=== PATIENT | female | born 2000 | race Caucasian/White ===

== ENCOUNTER 2020-02-04 11:47 | Inpatient (IN) | payer OTHER, MEDICAID, SELFPAY ==
[2020-02-04 11:56] VITALS: BP 116/59; PULSE 114; RESP 16; TEMP 36.6; O2SAT 99; BMI 19.3
--- NOTE | 2020-02-04 12:11 | ED_ITS ---
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 Reports he was admitted for approximately 4 days and was receiving 3 different IV antibiotics and decided to leave against medical advice to be closer to home. They did not discharge him with any medications. Patient reports he has consistent left- sided chest pain since he was diagnosed. Otherwise denies any new symptoms including fevers, chills, worsening chest pain, shortness of breath, back pain, abdominal pain, nausea/vomiting, dysuria, hematuria any other symptoms complaints or concerns at this time. Reports that he is interested in detox and will be seeking detox after he is finished with his treatment for the endocarditis. Reports he used to use IV cocaine although since he was diagnosed with endocarditis he was not using drugs until he left against medical advice and yesterday and up sniffing cocaine. Related Data Home Medications Medication Instructions Recorded Confirmed No Known Home Meds 02/04/20 02/04/20 Allergies Allergy/AdvReac Type Severity Reaction Status Date / Time No Known Allergies Allergy Unverified 11/05/19 18:15 [No Known Allergies*] Review of Systems Review of Systems: Constitutional : No Fever, No Chills, No Fatigue, No Malaise ENT/Mouth : No Ear Pain, No Nasal Congestion, No sore throat, No Rhinorrhea Eyes: No Eye Pain, No Swelling, No Vision Changes Cardiovascular : + Left sided Chest pain, No SOB, no Dyspnea on Exertion, No Orthopnea, No Edema, No extremity swelling, No Palpitations Respiratory : No Cough, No Sputum, No Wheezing, No Dyspnea Gastrointestinal : No Nausea, No Vomiting, No Diarrhea, No abdominal Pain, No Hematochezia, No Melena Genitourinary : No irregular bleeding, No Dysuria, No Urinary Frequency, No Hematuria, No Urinary Incontinence, No Urgency, No Flank Pain, No Urinary Flow Changes, No Hesitancy Musculoskeletal : No joint pain, No Myalgias, No Joint Swelling Skin : No Skin Lesions, No rash Neuro : No Weakness, No Numbness, No Paresthesias, No Loss of Consciousness, No Dizziness, No Headache Psych : No Anxiety/Panic, No Depression, No SI/HI/AH/VH Heme/Lymph: No Bruising, No Bleeding,No Lymphadenopathy Endocrine : No Polyuria, No Polydipsia, No Temperature Intolerance Yes all other systems are reviewed and are negative [facility] Past Medical History Medical History (Updated 02/04/20 @ 14:12 by RACHELLE Quintanilla) Cocaine abuse Opiate addiction Surgical History (Updated 02/04/20 @ 12:35 by RACHELLE Quintanilla) H/O mastectomy Social History Social History Alcohol intake: current Alcohol intake frequency: a few times a week Smoking Status: Former smoker Use of substances other than those prescribed or required for medical reasons: Yes Substance Use Type: Heroin Substance Use Frequency: Chronic Longstanding Last Used Substance: Unknown Any prior treatment program specific to substance use: No Advance Directives: No Advance Directives Information Provided: No Physical Exam Vital Signs: Vital Signs: Last Vital Signs Temp 98 F 02/04/20 11:56 Pulse 114 H 02/04/20 11:56 Resp 16 02/04/20 11:56 BP 116/59 L 02/04/20 11:56 Pulse Ox 99 02/04/20 11:56 Body Mass Index 19.3 vital signs have been reviewed as normal and appeared to be correct. Blood pressure normal. Heart rate tachycardic. Respiration rate normal. Temperature normal. Oxygen saturation normal. Appearance: Alert. Oriented X3. No acute distress. Head: Normal external exam. Normocephalic. Atraumatic. Eyes: PERRLA. EOMI. Conjunctiva and sclera normal. Eyelids normal. ENT: Pharynx normal. Uvula midline. Moist mucous membranes. No trismus noted. No drooling noted. No muffled voice noted. Neck: Normal inspection. Neck supple. FROM. No adenopathy. Thyroid Normal. No meningeal signs. No neck mass noted. CVS: Normal heart rate and rhythm. Heart sound normal. No murmurs noted. Pulses normal throughout. Respiratory: No respiratory distress. Painless inspiration. Breath sounds maykel l. No wheezes/rales/rhonchi noted. Chest nontender. No accessory muscle usage noted or decreased air movement noted. Back: Full range of motion noted. Skin: Skin warm and dry. Normal skin color. Normal skin turgor. No rashes/lesions/lacerations noted. Extremities: + Right calf tenderness, No left sided calf tenderness. No lower extremity edema. Extremities exhibit normal range of motion. Extremities nontender. Neuro: Oriented X 3. No motor deficit. No sensory deficit. Reflexes normal. 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 - Plan: Obtain records from [facility], Labs, EKG, CXR, Lactic acid, blood cultures, provide IVF's and 5 mg of oxycodone then re-evaluate Reevaluation(s) Reevaluation #1: - Records obtained from [facility] in [facility], which reports that the patient had blood cultures which revealed methicillin sensitive Staph aureus and the patient was placed on oxacillin and clindamycin per Infectious Disease team. Patient HIV negative. Hepatitis panel negative. Echocardiogram revealed vegetation on tricuspid valve. Will consult with the infectious disease team here to start the patient back on oxacillin and nafcillin possibly will re-evaluate. Time: 13:24 Reevaluation #2: [place] [address]. Mild anemia. Mild elevation in AST and ALT. Albumin 3.0. Otherwise all other labs are within normal limits. ETOH level negative. Ultrasound of right lower extremity within normal limits no acute processes noted. - I consulted with Infectious Disease Donna Drew who recommended continuing the oxacillin although I called pharmacy and we do not have that in the formulary therefore we will order an alternative medication at this time and I did a pharmacy non formulary drug request for the patient for oxacillin 2 g IV every 4 hours as they were giving in [facility]. Although the infectious disease Dr. Donna Drew reports that we do have the nafcillins therefore will attempt to order 2 gm q4hrs at this time. Plan is to admit. Patient understands agrees with this plan. Time: 14:07 Medical Decision Making Lab Data Lab results reviewed: Yes I reviewed the patient's lab results. Result diagrams: 02/04/20 12:55 02/04/20 12:55 Labs: Lab Results 02/04/20 02/04/20 02/04/20 Range/Units 12:55 12:55 12:55 WBC 15.0 H (4.8-10.8) X10*3/uL RBC 3.42 L (4.20-5.50) X10*6/uL Hgb 10.5 L (12.0-16.0) g/dl Hct 32.0 L (37-47) % MCV 93.6 (80-98) fL MCH 30.7 (27.0-33.0) pg MCHC 32.8 (31.0-35.0) g/dl RDW 17.1 H (11.0-16.0) % Plt Count 281 (160-400) X10*3/uL MPV 9.0 L (9.4-12.3) fL Immature Gran % (Auto) 3.7 H (0.0-0.4) % Neut % (Auto) 75.4 H (45-73) % Lymph % (Auto) 12.0 L (20-40) % Upton % (Auto) 7.8 (2-11) % Eos % (Auto) 0.9 (0-4) % Baso % (Auto) 0.2 (0-2) % Lymph # (Auto) 1.8 (1.2-4.9) X10*3/uL Upton # (Auto) 1.2 (0.1-1.2) X10*3/uL Eos # (Auto) 0.1 (0.0-0.4) X10*3/uL Baso # (Auto) 0.0 (0.0-0.2) X10*3/uL Abs Immat Gran (auto) 0.56 H (0.00-0.03) X10*3/uL Absolute Neuts (auto) 11.3 H (2.0-8.3) X10*3/uL Absolute Nucleated RBC 0.000 (0.0-0.012) X10*3/uL Nucleated RBC % (auto) 0.0 (0.0-0.2) /100WBC PT 15.3 H (10.8-13.0) SEC INR 1.3 H (0.9-1.1) APTT 27.0 (24.1-38.0) SEC Sodium 135 (135-145) mmol/L Potassium 4.1 (3.3-5.1) mmol/l Chloride 100 (96-108) mmol/L Carbon Dioxide 28 (22-29) mmol/L Anion Gap 11 L (12-20) BUN 6 L (9-16) mg/dL Creatinine 0.64 (0.5-1.4) mg/dL Estim Creat Clear Calc 120.4 Estimated GFR > 60 Random Glucose 82 (60-115) mg/dL Lactic Acid (0.5-2.0) mmol/L Calcium 7.9 L (8.4-10.2) mg/dL Magnesium 2.3 (1.6-2.6) mg/dL Total Bilirubin 0.7 (0.0-1.0) mg/dL Direct Bilirubin 0.4 (0.0-0.5) mg/dL AST 45 H (5-31) U/L ALT 51 H (0-31) U/L Alkaline Phosphatase 116 (39-117) U/L Troponin I High Sens (<3.5-17.0) ng/L B-Natriuretic Peptide (<100) pg/mL Total Protein 6.6 (6.5-8.0) g/dL Albumin 3.0 L (3.5-5.0) g/dL Urine Test (NEGATIVE) Urine Opiates Screen (Not Detect) Ur Barbiturates Screen (Not Detect) Ur Phencyclidine Scrn (Not Detect) Ur Amphetamines Screen (Not Detect) U Benzodiazepines Scrn (Not Detect) Urine Cocaine Screen (Not Detect) U Marijuana (THC) Screen (Not Detect) Ethyl Alcohol mg/dL 02/04/20 02/04/20 02/04/20 Range/Units 12:55 12:55 12:55 WBC (4.8-10.8) X10*3/uL RBC (4.20-5.50) X10*6/uL Hgb (12.0-16.0) g/dl Hct (37-47) % MCV (80-98) fL MCH (27.0-33.0) pg MCHC (31.0-35.0) g/dl RDW (11.0-16.0) % Plt Count (160-400) X10*3/uL MPV (9.4-12.3) fL Immature Gran % (Auto) (0.0-0.4) % Neut % (Auto) (45-73) % Lymph % (Auto) (20-40) % Upton % (Auto) (2-11) % Eos % (Auto) (0-4) % Baso % (Auto) (0-2) % Lymph # (Auto) (1.2-4.9) X10*3/uL Upton # (Auto) (0.1-1.2) X10*3/uL Eos # (Auto) (0.0-0.4) X10*3/uL Baso # (Auto) (0.0-0.2) X10*3/uL Abs Immat Gran (auto) (0.00-0.03) X10*3/uL Absolute Neuts (auto) (2.0-8.3) X10*3/uL Absolute Nucleated RBC (0.0-0.012) X10*3/uL Nucleated RBC % (auto) (0.0-0.2) /100WBC PT (10.8-13.0) SEC INR (0.9-1.1) APTT (24.1-38.0) SEC Sodium (135-145) mmol/L Potassium (3.3-5.1) mmol/l Chloride (96-108) mmol/L Carbon Dioxide (22-29) mmol/L Anion Gap (12-20) BUN (9-16) mg/dL Creatinine (0.5-1.4) mg/dL Estim Creat Clear Calc Estimated GFR Random Glucose (60-115) mg/dL Lactic Acid 0.8 (0.5-2.0) mmol/L Calcium (8.4-10.2) mg/dL Magnesium (1.6-2.6) mg/dL Total Bilirubin (0.0-1.0) mg/dL Direct Bilirubin (0.0-0.5) mg/dL AST (5-31) U/L ALT (0-31) U/L Alkaline Phosphatase (39-117) U/L Troponin I High Sens < 3.5 (<3.5-17.0) ng/L B-Natriuretic Peptide 59 (<100) pg/mL Total Protein (6.5-8.0) g/dL Albumin (3.5-5.0) g/dL Urine Test (NEGATIVE) Urine Opiates Screen (Not Detect) Ur Barbiturates Screen (Not Detect) Ur Phencyclidine Scrn (Not Detect) Ur Amphetamines Screen (Not Detect) U Benzodiazepines Scrn (Not Detect) Urine Cocaine Screen (Not Detect) U Marijuana (THC) Screen (Not Detect) Ethyl Alcohol mg/dL 02/04/20 02/04/20 02/04/20 Range/Units 12:55 13:18 14:13 WBC (4.8-10.8) X10*3/uL RBC (4.20-5.50) X10*6/uL Hgb (12.0-16.0) g/dl Hct (37-47) % MCV (80-98) fL MCH (27.0-33.0) pg MCHC (31.0-35.0) g/dl RDW (11.0-16.0) % Plt Count (160-400) X10*3/uL MPV (9.4-12.3) fL Immature Gran % (Auto) (0.0-0.4) % Neut % (Auto) (45-73) % Lymph % (Auto) (20-40) % Upton % (Auto) (2-11) % Eos % (Auto) (0-4) % Baso % (Auto) (0-2) % Lymph # (Auto) (1.2-4.9) X10*3/uL Upton # (Auto) (0.1-1.2) X10*3/uL Eos # (Auto) (0.0-0.4) X10*3/uL Baso # (Auto) (0.0-0.2) X10*3/uL Abs Immat Gran (auto) (0.00-0.03) X10*3/uL Absolute Neuts (auto) (2.0-8.3) X10*3/uL Absolute Nucleated RBC (0.0-0.012) X10*3/uL Nucleated RBC % (auto) (0.0-0.2) /100WBC PT (10.8-13.0) SEC INR (0.9-1.1) APTT (24.1-38.0) SEC Sodium (135-145) mmol/L Potassium (3.3-5.1) mmol/l Chloride (96-108) mmol/L Carbon Dioxide (22-29) mmol/L Anion Gap (12-20) BUN (9-16) mg/dL Creatinine (0.5-1.4) mg/dL Estim Creat Clear Calc Estimated GFR Random Glucose (60-115) mg/dL Lactic Acid (0.5-2.0) mmol/L Calcium (8.4-10.2) mg/dL Magnesium (1.6-2.6) mg/dL Total Bilirubin (0.0-1.0) mg/dL Direct Bilirubin (0.0-0.5) mg/dL AST (5-31) U/L ALT (0-31) U/L Alkaline Phosphatase (39-117) U/L Troponin I High Sens (<3.5-17.0) ng/L B-Natriuretic Peptide (<100) pg/mL Total Protein (6.5-8.0) g/dL Albumin (3.5-5.0) g/dL Urine Test NEGATIVE (NEGATIVE) Urine Opiates Screen POSITIVE H (Not Detect) Ur Barbiturates Screen Not Detected (Not Detect) Ur Phencyclidine Scrn Not Detected (Not Detect) Ur Amphetamines Screen Not Detected (Not Detect) U Benzodiazepines Scrn Not Detected (Not Detect) Urine Cocaine Screen Not Detected (Not Detect) U Marijuana (THC) Screen Not Detected (Not Detect) Ethyl Alcohol < 10 mg/dL ECG Data Attestation: I personally reviewed and interpreted this ECG as follows: Interpretation: Normal sinus rhythm with a ventricular rate of 90 with normal TN interval. Normal QRS duration. Normal QT/QTC interval. No acute ischemic changes noted. Critical Care Time Critical Care Time Critical Care Time: Yes Total Critical Care Time: 60 Attestation: I personally attest to this time spent taking care of the patient Discharge Plan Discharge Clinical Impression: Vegetative endocarditis, Sepsis Patient Disposition: Admitted As Inpatient
--- NOTE | 2020-02-04 12:26 | ECG_ITS ---
Test Reason : WEAKNESS Blood Pressure : / mmHG Vent. Rate : 090 BPM Atrial Rate : 090 BPM P-R Int : 120 ms QRS Dur : 094 ms QT Int : 378 ms P-R-T Axes : 054 076 051 degrees QTc Int : 462 ms Normal sinus rhythm Normal ECG When compared with ECG of 03-NOV-2019 01:07, No significant change was found Referred By: Ning Treviño Electronically Signed By:All Salazar
--- NOTE | 2020-02-04 12:36 | US_ITS ---
EXAMINATION: US VENOUS ULTRASOUND WITH DOPPLER LOWER EXTREMITY, RIGHT CLINICAL INFORMATION: History of IV drug usage and endocarditis. COMPARISON: None TECHNIQUE: Ultrasound of the deep veins is performed from the hip to the calf with compression sonography and color and pulse Doppler assessment. Spectral analysis with color-flow imaging is performed. FINDINGS: There is normal venous compression and respiratory variation and augmented flow. The visualized common femoral vein, superficial femoral vein, profunda femoral vein, popliteal vein, and the trifurcation region shows no evidence of deep venous thrombosis. There is small popliteal fossa cyst. It measures 1.8 x 0.7 x 1.9 cm US/US venous duplex LE RT IMPRESSION: No evidence of DVT demonstrated in the right lower extremity. Small popliteal fossa cyst
[2020-02-04 13:05] LABS: MANUAL DIFF FLAG NO
[2020-02-04 13:06] LABS: Basophils Percent Auto 0.2 % (0-2); Eosinophils Absolute Auto 0.1 X10*3/uL (0.0-0.4); Eosinophils Percent Auto 0.9 % (0-4); Hemoglobin 10.5 g/dl (12.0-16.0); Imm Gran Abs Auto 0.56 X10*3/uL (0.00-0.03); Imm Gran Pct Auto 3.7 % (0.0-0.4); Lymphocytes Absolute Auto 1.8 X10*3/uL (1.2-4.9); Mean Corpuscular HGB Conc 32.8 g/dl (31.0-35.0); Mean Corpuscular Hemoglobin 30.7 pg (27.0-33.0); Mean Corpuscular Volume 93.6 fL (80-98); Monocytes Absolute Auto 1.2 X10*3/uL (0.1-1.2); Monocytes Percent Auto 7.8 % (2-11); Neutrophils Absolute Auto 11.3 X10*3/uL (2.0-8.3); Neutrophils Percent Auto 75.4 % (45-73); Platelet Count 281 X10*3/uL (160-400); Red Blood Count 3.42 X10*6/uL (4.20-5.50); Red Cell Distribution Width 17.1 % (11.0-16.0)
[2020-02-04 13:11] LABS: INTERNATIONAL NORM RATIO 1.3 (0.9-1.1); Prothrombin Time 15.3 SEC (10.8-13.0)
[2020-02-04 13:22] LABS: Lactic Acid 0.8 mmol/L (0.5-2.0)
[2020-02-04 13:37] LABS: Ethanol < 10 mg/dL
[2020-02-04 13:43] LABS: B Type Natriuretic Peptide 59 pg/mL (<100); Troponin-I High Sensitivity < 3.5 ng/L (<3.5-17.0)
[2020-02-04 13:45] LABS: Alanine Aminotransferase 51 U/L (0-31); Alkaline Phosphatase 116 U/L (39-117); Anion Gap 11 (12-20); Aspartate Amino Transferase 45 U/L (5-31); Bilirubin Direct 0.4 mg/dL (0.0-0.5); Bilirubin Total 0.7 mg/dL (0.0-1.0); Blood Urea Nitrogen 6 mg/dL (9-16); Calcium 7.9 mg/dL (8.4-10.2); Carbon Dioxide 28 mmol/L (22-29); Chloride 100 mmol/L (96-108); Creatinine Clr Calc Pharmacy 120.4; Estimated Glomerular Filt Rate > 60; Glucose Random 82 mg/dL (60-115); Magnesium 2.3 mg/dL (1.6-2.6); Potassium 4.1 mmol/l (3.3-5.1); Sodium 135 mmol/L (135-145); Total Protein 6.6 g/dL (6.5-8.0)
--- NOTE | 2020-02-04 13:58 | XR_ITS ---
EXAMINATION: XR CHEST CLINICAL INFORMATION: Left-sided chest pain and history of endocarditis COMPARISON: None TECHNIQUE: 2 views of the chest were obtained. FINDINGS: The cardiac and mediastinal contours are normal. The lungs appear well inflated. There is a airspace disease at the right lung base suggestive of pneumonia. There are several bilateral nodular opacities questionable for pulmonary nodules, for example in the left upper lobe in between the anterior third and fourth ribs measuring 1 cm and in the right lung in between the anterior fifth and sixth ribs measuring 1.4 cm. There is a small right pleural effusion. Bony structures are unremarkable. XR/XR chest 2V IMPRESSION: Airspace disease at the right lung base suggestive of pneumonia. There are also bilateral smaller nodular opacities. Given history of endocarditis, septic emboli should be considered. Findings could be better evaluated with chest CT if clinically indicated. Small right pleural effusion.
[2020-02-04] MEDS: 0.9 % Sodium Chloride 1,632.93 ML 1632.93 ML IVCONT (14:08)
[2020-02-04 14:13] LABS: Amphetamine Screen Urine Not Detected (Not Detect); Barbiturates, Urine Not Detected (Not Detect); Benzodiazepines Screen Urine Not Detected (Not Detect); Cannabinoid Screen Urine Not Detected (Not Detect); Cocaine Screen Urine Not Detected (Not Detect); Opiate Screen Urine POSITIVE (Not Detect); Phencyclidine Screen Urine Not Detected (Not Detect)
[2020-02-04 14:44] LABS: UPreg QC Valid YES; Urine Pregnancy NEGATIVE (NEGATIVE)
[2020-02-04] MEDS: oxyCODONE HCl Immed Release 5 MG TABLET PO (15:06)
[2020-02-04] MEDS: Nafcillin Sodium 2 GM in 0.9 % Sodium Chloride 100 ML IV ×3 (15:07→23:54)
[2020-02-04 15:44] VITALS: BP 94/42; PULSE 96; RESP 18; TEMP 36.7; O2SAT 97
--- NOTE | 2020-02-04 15:46 | CT_ITS ---
EXAMINATION: CT CHEST WITHOUT CONTRAST CLINICAL INFORMATION: Abnormal chest x-ray, rule out septic emboli. COMPARISON: Chest radiographs from today. TECHNIQUE: Multidetector volumetric CT imaging of the chest was done. Axial MIP volume rendering provided. Sagittal and coronal reformatted images were obtained. This CT examination was performed using dose optimization techniques as appropriate, variously including the following: *Automated exposure control *Adjustment of mA and/or kV according to patient size (this includes techniques or standardized protocols for targeted exams where dose is matched to indication/reason for exam; i.e. extremities or head) *Use of iterative reconstruction technique DLP: 184.13 mGy-cm FINDINGS: LUNGS/PLEURA/AIRWAYS: Multiple nodular infiltrates are seen bilaterally, some with necrotic centers. A nodule posteriorly in the right apex measures 1.0 cm (image 10, series 3. A subpleural nodule anteriorly in the left upper lobe measures 1.2 cm (image 15, series 3). A larger infiltrate/nodules are seen measuring 2.9 cm posteriorly in the superior segment of the right lower lobe (image 24, series 3) and 2.9 cm in the superior segment of the left lower lobe. There are small bilateral pleural effusions. Bibasilar linear atelectasis/scarring is seen. The airways are patent. MEDIASTINUM: The visualized thyroid gland is unremarkable. Normal caliber of the thoracic aorta. No coronary artery calcifications. No significant pericardial effusion. No mediastinal or hilar lymphadenopathy. Debris is seen within the visualized esophagus from the level the inferior neck distally. AXILLA: No lymphadenopathy. UPPER ABDOMEN: Unremarkable. OSSEOUS STRUCTURES: Mild mid thoracic dextro scoliosis without significant degenerative changes or suspicious abnormality. CT/CT chest wo con IMPRESSION: 1. Multiple nodular infiltrates bilaterally are nonspecific, but would be consistent with septic emboli. Malignancy would be less likely but cannot be excluded. Small bilateral pleural effusions. Short-term follow-up chest with chest radiographs is recommended. If these findings do not resolve, a repeat chest CT scan is recommended as clinically indicated. 2. Debris within the esophagus without surrounding abnormality. This could represent reflux/sequelae of emesis.
[2020-02-04 16:16] LABS: COVID-19 Test Negative (Negative)
--- NOTE | 2020-02-04 16:17 | P.HPHOSP_ITS ---
History of Present Illness Date of Service: 02/04/20 <RACHELLE Lakhani - Last Filed: 02/04/20 19:00> Chief Complaint: endocarditis <RACHELLE Lakhani - Last Filed: 02/04/20 19:00> This is a 19 year old transgender female with history of IV drug abuse who presents due to endocarditis. He left POOL from [facility] 02/03/2020 where he was being treated for tricuspid valve endocarditis and MSSA bacteremia. He had been started on oxacillin but blood cultures were still positive therefore PICC line had not yet been placed. He lives locally in wanted to be closer to home so left AMA and presented here at [place]. He was also being treated for acute hypoxemic respiratory failure. COVID, influenza and RSV were all negative. Chest CTA showed bilateral pleural effusions subpleural nodules and adenopathy. In addition he was diagnosed with urinary tract infection. Initial vital signs revealed tachycardia with heart rate of 114. Lab work was significant for leukocytosis of 15,000. Tox screen positive for opiates. He was started on oxacillin and decision was reached to admit him for further management. <RACHELLE Lakhani - Last Filed: 02/04/20 19:00> Review of Systems Review of Systems: Yes all other systems are reviewed and are negative <RACHELLE Lakhani - Last Filed: 02/04/20 19:00> Constitutional: Constitutional: Denies chills <RACHELLE Lakhani - Last Filed: 02/04/20 19:00> Cardiovascular: Cardiovascular: Reports chest pain <RACHELLE Lakhani - Last Filed: 02/04/20 19:00> Respiratory: Respiratory: Denies cough <RACHELLE Lakhani - Last Filed: 02/04/20 19:00> Gastrointestinal: Gastrointestinal: Denies abdominal pain <RACHELLE Lakhani - Last Filed: 02/04/20 19:00> ON LICENSE OF [facility] Medical History: Medical History Cocaine abuse IV drug abuse Opiate addiction <RACHELLE Lakhani Last Filed: 02/04/20 19:00> Functional capacity: independent ambulation <RACHELLE Lakhani - Last Filed: 02/04/20 19:00> Family History: Family History Other Adopted <RACHELLE Lakhani - Last Filed: 02/04/20 19:00> Surgical History: Surgical History H/O mastectomy <RACHELLE Lakhani - Last Filed: 02/04/20 19:00> Social History: Social History Housing: Homeless Housing Other:: mother told pt they are welcome at home Do you presently have visiting nurse or other home services: No Alcohol intake: current Alcohol intake frequency: a few times a month Smoking Status: Current some day smoker Tobacco Type: Cigarette Smoked in Last 30 Days: Yes Patient Interested in Nicotine Replacement: Yes Use of substances other than those prescribed or required for medical reasons: Yes Substance Use Type: Crack/Cocaine and Opiates Substance Use Frequency: Daily Last Used Substance: Days (ago) Currently Displaying Signs/Symptoms of Drug Intoxication Withdrawal: No Other Past Substance Use Problem:: abdomina; discomfort Any prior treatment program specific to substance use: Yes Have you been hit, kicked, punched, or otherwise hurt by someone within the past year? If so, by whom?: No Do you feel safe in your current relationship?: No Is there a partner from a previous relationship who is making you feel unsafe now?: No Are you made to feel afraid or neglected: No Advance Directives: No Advance Directives Information Provided: No Advance Directives on File: No Do you have thoughts of harming others: None Do you have a plan to hurt others: No Plan Recently lost weight without trying: Yes service: No Current occupational status: unemployed <RACHELLE Lakhani - Last Filed: 02/04/20 19:00> Meds Allergies/Adverse reactions: Allergies Allergy/AdvReac Type Severity Reaction Status Date / Time No Known Allergies Allergy Unverified 11/05/19 18:15 [No Known Allergies*] <RACHELLE Lakhani - Last Filed: 02/04/20 19:00> Home medications: Home Medications Medication Instructions Recorded Confirmed Type No Known Home Meds 02/04/20 02/04/20 History <RACHELLE Lakhani - Last Filed: 02/04/20 19:00> Physical Exam Vital Signs and Narrative: Vital Signs: Last Vital Signs Temp 98.1 F 02/04/20 15:44 Pulse 96 02/04/20 15:44 Resp 18 02/04/20 15:44 BP 94/42 L 02/04/20 15:44 Pulse Ox 97 02/04/20 15:44 Body Mass Index 19.3 <RACEHLLE Lakhani - Last Filed: 02/04/20 19:00> Const: General: comfortable, no acute distress, alert and awake <RACHELLE Lakhani - Last Filed: 02/04/20 19:00> Nutritional Appearance: thin <RACHELLE Lakhani - Last Filed: 02/04/20 19:00> Orientation/consciousness: patient oriented x3 <RACHELLE Lakhani - Last Filed: 02/04/20 19:00> HENMT: Head: Yes normocephalic and Yes atraumatic <RACHELLE Lakhani - Last Filed: 02/04/20 19:00> Eyes: Sclerae: sclerae normal <RACHELLE Lakhani - Last Filed: 02/04/20 19:00> Chest: Chest palpation & inspection: normal inspection of the chest <RACHELLE Lakhani - Last Filed: 02/04/20 19:00> Resp: Effort & Inspection: normal respiratory effort and no respiratory distress <RACHELLE Lakhani - Last Filed: 02/04/20 19:00> Cardio: Rate: regular rate <RACHELLE Lakhani - Last Filed: 02/04/20 19:00> Rhythm: regular rhythm <RACHELLE Lakhani - Last Filed: 02/04/20 19:00> GI: Palpation (GI): Soft to palpation and nontender <RACHELLE Lakhani - Last Filed: 02/04/20 19:00> Skin: General skin exam: no rashes or lesions noted <RACHELLE Lakhani - Last Filed: 02/04/20 19:00> Neuro: General: patient oriented x3 <RACHELLE Lakhani - Last Filed: 02/04/20 19:00> Cranial nerves: Yes CN's II-XII intact bilaterally and Yes Bilaterally intact EOM present <RACHELLE Lakhani - Last Filed: 02/04/20 19:00> Extrem: General: Yes normal to inspection <RACHELLE Lakhani - Last Filed: 02/04/20 19:00> Results Labs CBC and Chem 7: : 02/07/20 08:29 02/07/20 08:29 <RACHELLE Lakhani - Last Filed: 02/04/20 19:00> Labs: Laboratory Results - last 24 hr 02/04/20 02/04/20 02/04/20 12:55 12:55 12:55 MCV 93.6 MCH 30.7 MCHC 32.8 RDW 17.1 H Plt Count 281 MPV 9.0 L Immature Gran % (Auto) 3.7 H Neut % (Auto) 75.4 H Lymph % (Auto) 12.0 L [place] % (Auto) 7.8 Eos % (Auto) 0.9 Baso % (Auto) 0.2 Lymph # (Auto) 1.8 [place] # (Auto) 1.2 Eos # (Auto) 0.1 Baso # (Auto) 0.0 Abs Immat Gran (auto) 0.56 H Absolute Neuts (auto) 11.3 H Absolute Nucleated RBC 0.000 Nucleated RBC % (auto) 0.0 PT 15.3 H INR 1.3 H APTT 27.0 Anion Gap 11 L Estim Creat Clear Calc 120.4 Estimated GFR > 60 Random Glucose 82 Lactic Acid Calcium 7.9 L Magnesium 2.3 Total Bilirubin 0.7 Direct Bilirubin 0.4 AST 45 H ALT 51 H Alkaline Phosphatase 116 Troponin I High Sens B-Natriuretic Peptide Total Protein 6.6 Albumin 3.0 L Urine Test Urine Opiates Screen Ur Barbiturates Screen Ur Phencyclidine Scrn Ur Amphetamines Screen U Benzodiazepines Scrn Urine Cocaine Screen U Marijuana (THC) Screen Ethyl Alcohol COVID-19 ([facility]) COVID-19 Clin Com 12/17/20 12/17/20 12/17/20 12:55 12:55 12:55 MCV MCH MCHC RDW Plt Count MPV Immature Gran % (Auto) Neut % (Auto) Lymph % (Auto) [place] % (Auto) Eos % (Auto) Baso % (Auto) Lymph # (Auto) [place] # (Auto) Eos # (Auto) Baso # (Auto) Abs Immat Gran (auto) Absolute Neuts (auto) Absolute Nucleated RBC Nucleated RBC % (auto) PT INR APTT Anion Gap Estim Creat Clear Calc Estimated GFR Random Glucose Lactic Acid 0.8 Calcium Magnesium Total Bilirubin Direct Bilirubin AST ALT Alkaline Phosphatase Troponin I High Sens < 3.5 B-Natriuretic Peptide 59 Total Protein Albumin Urine Test Urine Opiates Screen Ur Barbiturates Screen Ur Phencyclidine Scrn Ur Amphetamines Screen U Benzodiazepines Scrn Urine Cocaine Screen U Marijuana (THC) Screen Ethyl Alcohol COVID-19 (WENDY) COVID-Apprion 02/04/20 02/04/20 02/04/20 12:55 13:18 14:13 MCV MCH MCHC RDW Plt Count MPV Immature Gran % (Auto) Neut % (Auto) Lymph % (Auto) [place] % (Auto) Eos % (Auto) Baso % (Auto) Lymph # (Auto) [place] # (Auto) Eos # (Auto) Baso # (Auto) Abs Immat Gran (auto) Absolute Neuts (auto) Absolute Nucleated RBC Nucleated RBC % (auto) PT INR APTT Anion Gap Estim Creat Clear Calc Estimated GFR Random Glucose Lactic Acid Calcium Magnesium Total Bilirubin Direct Bilirubin AST ALT Alkaline Phosphatase Troponin I High Sens B-Natriuretic Peptide Total Protein Albumin Urine Test NEGATIVE Urine Opiates Screen POSITIVE H Ur Barbiturates Screen Not Detected Ur Phencyclidine Scrn Not Detected Ur Amphetamines Screen Not Detected U Benzodiazepines Scrn Not Detected Urine Cocaine Screen Not Detected U Marijuana (THC) Screen Not Detected Ethyl Alcohol < 10 COVID-19 (WENDY) COVID-Apprion 02/04/20 15:53 MCV MCH MCHC RDW Plt Count MPV Immature Gran % (Auto) Neut % (Auto) Lymph % (Auto) [place] % (Auto) Eos % (Auto) Baso % (Auto) Lymph # (Auto) [place] # (Auto) Eos # (Auto) Baso # (Auto) Abs Immat Gran (auto) Absolute Neuts (auto) Absolute Nucleated RBC Nucleated RBC % (auto) PT INR APTT Anion Gap Estim Creat Clear Calc Estimated GFR Random Glucose Lactic Acid Calcium Magnesium Total Bilirubin Direct Bilirubin AST ALT Alkaline Phosphatase Troponin I High Sens B-Natriuretic Peptide Total Protein Albumin Urine Test Urine Opiates Screen Ur Barbiturates Screen Ur Phencyclidine Scrn Ur Amphetamines Screen U Benzodiazepines Scrn Urine Cocaine Screen U Marijuana (THC) Screen Ethyl Alcohol COVID-19 ([facility]ENDY) Negative COVID-19 Clin Com See Note <RACHELLE Lakhani - Last Filed: 02/04/20 19:00> Imaging Radiologist's Impressions: Impressions Venous Duplex 02/04/20 12:36 IMPRESSION: No evidence of DVT demonstrated in the right lower extremity. Small popliteal fossa cyst Chest X-Ray 02/04/20 13:58 IMPRESSION: Airspace disease at the right lung base suggestive of pneumonia. There are also bilateral smaller nodular opacities. Given history of endocarditis, septic emboli should be considered. Findings could be better evaluated with chest CT if clinically indicated. Small right pleural effusion. <RACHELLE Lakhani - Last Filed: 02/04/20 19:00> Assessment and Plan (1) Vegetative endocarditis: Status: Acute <RACHELLE Lakhani - Last Filed: 02/04/20 19:00> (2) Sepsis: Status: Acute <RACHELLE Lakhani - Last Filed: 02/04/20 19:00> This is a 19-year-old transgender (female to male) who prefers to go by Beulah. He presents after leaving AMA from [facility] where he was being treated for tricuspid valve endocarditis. Sepsis Patient meets sepsis criteria with tachycardia and leukocytosis Lactic acid within normal limits Sepsis focused exam completed Secondary to endocarditis -follow-up blood cultures -will check CT chest to evaluate for septic emboli Tricuspid valve endocarditis/MSSA bacteremia Diagnosed at outside hospital Echo report from [facility] shows Moderate size mobile vegetation on the anterior leaflet of the tricuspid valve with mild tricuspid regurgitation -IV nafcillin -ID consult -blood cultures UTI Treated for E coli UTI at [facility] Given dose of ceftriaxone in the ED Follow-up repeat urinalysis Substance abuse No evidence of withdrawal at this time Consider Care team evaluation prior to discharge DVT prophylaxis-mechanical device Code status-full code This case was discussed with Dr. Roth <RACHELLE Lakhani - Last Filed: 02/04/20 19:00>
[2020-02-04] MEDS: 0.9 % Sodium Chloride 1,000 ML 999 ML IVCONT (17:01)
[2020-02-04 17:33] VITALS: BP 106/56; PULSE 91; RESP 18; TEMP 37.2; O2SAT 99
[2020-02-04] MEDS: 0.9 % Sodium Chloride Flush 3 ML SYRINGE IVFLUSH ×2 (17:59→23:54)
[2020-02-04] MEDS: 0.9 % Sodium Chloride 1,000 ML 100 ML IVCONT (17:59)
--- NOTE | 2020-02-04 18:59 | PM.EVENT ---
Event Note Date of Service: 02/04/20 Event Note: Attending admission note Add Ailyn 19-year-old transgender female to male patient who was being treated at [facility] in [place], [place] for MSSA bacteremia/endocarditits/septic pulmonary embolism but decided to leave AMA as he is from [place], [place] and subsequently came to [facility]. Will admit for antibiotics, eventual picc line and 6 weeks antibiotics.
[2020-02-04 19:04] LABS: Glucose Urine UA NEG (NEG); Leukocyte Esterase Urine NEG (NEG); Nitrite Urine NEG (NEG); Specific Gravity - Urine 1.025 (1.005-1.025); Urine Blood NEG (NEG); Urine Ketones NEG (NEG); Urine Protein NEG (NEG-TRACE)
[2020-02-04 19:11] LABS: Appearance Urine CLEAR; Color Urine YELLOW
[2020-02-04 19:15] LABS: RBC Urine 0-2 /HPF (0); Squamous Epithelial Cell Urine TRACE /LPF; WBC Urine 0 /HPF (0-4)
[2020-02-04 20:00] VITALS: BP 99/55; PULSE 103; RESP 20; TEMP 37.4; O2SAT 98
[2020-02-04] MEDS: traZODone HCL 25 MG HALFTAB 12.5 MG PO (22:16)
[2020-02-04] MEDS: Acetaminophen 325 MG TABLET 650 MG PO (23:54)
[2020-02-05] VITALS (9 sets, daily range): BP systolic 95–125; BP diastolic 48–70; PULSE 95–113; RESP 16–20; TEMP 37.2–37.9; O2SAT 94–98
[2020-02-05] MEDS: 0.9 % Sodium Chloride 1,000 ML 125 ML IVCONT ×2 (00:46→05:02)
[2020-02-05] MEDS: Nafcillin Sodium 2 GM in 0.9 % Sodium Chloride 100 ML IV ×5 (05:02→21:16)
[2020-02-05 06:49] LABS: Hematocrit 30.2 % (37-47); Hemoglobin 9.8 g/dl (12.0-16.0); Mean Corpuscular HGB Conc 32.5 g/dl (31.0-35.0); Mean Corpuscular Hemoglobin 30.9 pg (27.0-33.0); Mean Corpuscular Volume 95.3 fL (80-98); Mean Platelet Volume 8.8 fL (9.4-12.3); Platelet Count 294 X10*3/uL (160-400); Red Blood Count 3.17 X10*6/uL (4.20-5.50); White Blood Count 11.3 X10*3/uL (4.8-10.8)
[2020-02-05 07:08] LABS: Anion Gap 13 (12-20); Blood Urea Nitrogen 4 mg/dL (9-16); Calcium 7.3 mg/dL (8.4-10.2); Carbon Dioxide 24 mmol/L (22-29); Chloride 104 mmol/L (96-108); Creatinine Clr Calc Pharmacy 128.4; Estimated Glomerular Filt Rate > 60; Glucose Random 92 mg/dL (60-115); Potassium 3.9 mmol/l (3.3-5.1); Sodium 137 mmol/L (135-145)
[2020-02-05 07:13] LABS: Band Neutrophils Percent 6 % (3-5); Basophils Abs Manual 0.1 X10*3/uL (0.0-0.3); Basophils Percent Manual 1 % (0-1); Lymphocytes Absolute Manual 1.8 X10*3/uL (0.6-4.8); Lymphocytes Percent Manual 16 % (20-40); Metamyelocytes Absolute 0.1 X10*3/uL; Metamyelocytes Percent 1 %; Monocytes Absolute Manual 0.3 X10*3/uL (0.0-1.2); Monocytes Percent Manual 3 % (2-11); Neutrophils Absolute Manual 8.9 X10*3/uL (2.2-7.9); Neutrophils Percent Manual 73 % (45-73)
[2020-02-05 07:14] LABS: Macrocytosis 1+; Platelet Estimate NORMAL (NORMAL); Platelet Morphology Comment NORMAL; Polychromasia 1+; RBC Morphology NOTED
[2020-02-05] MEDS: oxyCODONE HCl Immed Release 5 MG TABLET PO ×3 (07:47→21:15)
--- NOTE | 2020-02-05 09:11 | MHC.CM.PN ---
CM attempted to reach Patient by phone (Covid precautions) but was unable to reach on neither cell nor room phone and contact was unreachable also. From chart review, CM completed CM Initial Assessment as accurately as possible. Patient appears to be homeless. Patient has a history of IVDA and leaving AMA. With Patient's history of IVDA and Endocarditis, it is very likely that [facility] and /or [facility] will be the only options for dc and CM will refer to these facilities. DC planning has been initiated and CM will continue to follow for possible need to adjust the dc plan.
--- NOTE | 2020-02-05 09:16 | MHC.CM.PN ---
ADDENDUM- Patient is a transgender female (female to male) and prefers to be called, Beulah.
--- NOTE | 2020-02-05 11:48 | P.CDIC_ITS ---
CDI Concurrent Query Service Date: 02/05/20 Documentation Clarification: Please clarify if you are treating a proba ble/suspected/likely or confirmed: E coli UTI, Txt, Rule out, Resolved Please specify if known Treated for UTI at other hospital, NOT here Provider Response: Other Other Diagnosis: treated for UTI at other hospital PLEASE DO NOT DELETE/MODIFY EXISTING CONTENT Additional information is needed in order to code to the highest accuracy and appropriate Severity of Illness (SOI). Please clarify the information noted below in your progress notes and discharge summary. Risk Factors/Clinical Indicators/Treatments UTI, Treated for E coli UTI at [facility]. Given dose of ceftriaxone in the Ed F/u repeat urinalysis Urine clear Nitrite neg Leukocyte neg Bacteria none CDS: Sari Leonard CCS, CDIS Contact Number: [phone] Please Review the information above and exercise your independent professional judgment in responding to the query. If you concur, pleas document in the PROGRESS NOTES and DISCHARGE SUMMARY. If you do not agree with the query, please document in the query above. THIS QUERY IS PART OF THE PERMANENT MEDICAL RECORD
[2020-02-05] MEDS: Nicotine 14 MG PATCH.TD24 TRANSDERMA (13:31)
--- NOTE | 2020-02-05 15:19 | P.CNID_ITS ---
History of Present Illness Data of Consult Service Date: 02/05/20 Requesting physician: Vikash Roth Primary Care Provider: Lauren Physician HPI Reason for consult: bacteremia Asa presents to hospital from [place] with treatment for bacteremia. He uses IV drugs and had PRSA bacteremia He also had E coli in urine and received Ceftriaxone for 4 days with no urinary symptoms. He has some diarrhea and no other symptoms Review of Systems Review of Systems: Yes all other systems are reviewed and are negative PMFSH Past Medical History Medical History Cocaine abuse IV drug abuse Opiate addiction Functional capacity: independent ambulation Family History Family History Other Adopted Surgical History Surgical History H/O mastectomy Social History Social History Housing: Homeless Housing Other:: mother told pt they are welcome at home Do you presently have visiting nurse or other home services: No Alcohol intake: current Alcohol intake frequency: a few times a month Smoking Status: Current some day smoker Tobacco Type: Cigarette Smoked in Last 30 Days: Yes Patient Interested in Nicotine Replacement: Yes Use of substances other than those prescribed or required for medical reasons: Yes Substance Use Type: Crack/Cocaine and Opiates Substance Use Frequency: Daily Last Used Substance: Days (ago) Currently Displaying Signs/Symptoms of Drug Intoxication Withdrawal: No Other Past Substance Use Problem:: abdomina; discomfort Any prior treatment program specific to substance use: Yes Have you been hit, kicked, punched, or otherwise hurt by someone within the past year? If so, by whom?: No Do you feel safe in your current relationship?: No Is there a partner from a previous relationship who is making you feel unsafe now?: No Are you made to feel afraid or neglected: No Advance Directives: No Advance Directives Information Provided: No Advance Directives on File: No Do you have thoughts of harming others: None Do you have a plan to hurt others: No Plan Recently lost weight without trying: Yes service: No Current occupational status: unemployed Meds Allergies Allergy/AdvReac Type Severity Reaction Status Date / Time No Known Allergies Allergy Unverified 11/05/19 18:15 [No Known Allergies*] Home Medications Medication Instructions Recorded Confirmed Type No Known Home Meds 02/04/20 02/04/20 History Physical Exam Vital Signs: Vital Signs: Last Vital Signs Temp 99.2 F 02/05/20 11:39 Pulse 113 H 02/05/20 11:39 Resp 18 02/05/20 11:39 BP 112/55 L 02/05/20 11:39 Pulse Ox 97 02/05/20 11:39 Body Mass Index 19.3 Const: General: cooperative Orientation/consciousness: oriented to person, oriented to place and oriented to time HENMT: Head: Yes normal to inspection Mouth: Normal oral and palatal mucosa present Eyes: General: appearance normal, both eyes and all related structures Resp: Effort & Inspection: normal respiratory effort Cardio: Rate: regular rate Rhythm: regular rhythm GI: Palpation (GI): nontender : General: Yes no CVA tenderness Back/Spine/Pelvis: Back: no CVA tenderness Skin: General skin exam: no rashes or lesions noted Neuro: General: oriented to person, oriented to place and oriented to time Extrem: General: Yes normal to inspection Assessment and Plan (1) Vegetative endocarditis: Problem details: PRSA endocarditis, ticuspid valve He has been feeling better but has not cleared bacteremia He is seeking help for IVDU also Status: Acute Would finish 6 weeks IV Nafcillin 2 g IV every 4 hours,short course not acceptable due to pulmonary septic emboli and persistent bacteremia Weekly CBC,creatinine,SGOT Check HIV and Hepatitis C again in one month (2) Sepsis: Status: Acute Results Labs CBC & Chem 7: 02/05/20 05:31 02/05/20 05:31 Labs: Short CBC 02/05/20 Range/Units 05:31 WBC 11.3 H (4.8-10.8) X10*3/uL Hgb 9.8 L (12.0-16.0) g/dl Hct 30.2 L (37-47) % Plt Count 294 (160-400) X10*3/uL BMP 02/05/20 05:31 Sodium 137 Potassium 3.9 Chloride 104 Carbon Dioxide 24 BUN 4 L Creatinine 0.60 Calcium 7.3 L D Urine 02/04/20 Range/Units 17:45 Urine Color YELLOW Urine Appearance CLEAR Urine pH 5.0 (5.0-8.0) Ur Specific [place] 1.025 (1.005-1.025) Urine Protein NEG (NEG-TRACE) MG/DL Urine Glucose (UA) NEG (NEG) MG/DL Microbiology Microbiology Results: Microbiology 02/04/20 12:55 Blood - Venous Blood Culture - Preliminary No growth after 24 hours.
--- NOTE | 2020-02-05 16:07 | MHC.CM.PN ---
Patient denied at 2 SNFs (TOO YOUNG/UNDER 21); referral made to [facility]. CM will follow.
[2020-02-05] MEDS: 0.9 % Sodium Chloride Flush 3 ML SYRINGE IVFLUSH (16:23)
--- NOTE | 2020-02-05 16:55 | HO.PM.IMPN ---
Subjective Subjective Date of Service: 02/05/20 Interval History: seen and examined agreeable on 6 weeks iv antibiotics interested in stopping iv drug having some mild withdrawal symptoms some pleurtic cp ROS General - no fevers or chills Cardiovascular - no chest pain Respiratory - no shortness of breath or cough Abdominal- no abdominal pain, nausea, vomiting, diarrhea Physical Exam Vital Signs: Vital Signs: Last Vital Signs Temp 99.4 F 02/05/20 16:00 Pulse 104 H 02/05/20 16:00 Resp 16 02/05/20 16:00 BP 115/59 L 02/05/20 16:00 Pulse Ox 95 02/05/20 16:00 Body Mass Index 19.3 Const: Other: General - no acute distress, appears comfortable Cardiovascular - regular rate and rhythm, S1-S2 Lungs - normal respiratory effort, clear to auscultation bilaterally, no wheezing Abdomen - soft, nontender, no rebound or guarding Extremities - no edema bilaterally Neuro - awake and alert, no focal deficits Objective Data Current Medications Generic Name Dose Route Start Last Admin Trade Name Sergioq PRN Reason Stop Dose Admin Acetaminophen 650 mg 02/04/20 17:32 02/04/20 23:54 Acetaminophen 325 Mg Tablet PO 650 mg Q6H PRN Administration Pain, Mild (Pain Scale 1-3) Docusate Sodium 100 mg 02/04/20 17:32 Docusate Sodium 100 Mg Capsule PO DAILY PRN Constipation Nafcillin Sodium 2 gm/ Sodium 100 mls @ 200 mls/hr 02/04/20 14:48 02/05/20 16:23 Chloride IV 200 mls/hr RQ4H GUERA Administration Methadone HCl 20 mg 02/05/20 16:54 Methadone Hcl 1 Mg/0.1 Ml Oral.Conc PO 02/05/20 16:55 ONCE ONE Nicotine 14 mg 02/05/20 10:15 02/05/20 13:31 Nicotine 14 Mg Patch.Td24 TRANSDERMA 14 mg DAILY GUERA Administration Ondansetron HCl 4 mg 02/04/20 17:32 Ondansetron Hcl 4 Mg/2 Ml Vial IVPUSH Q8H PRN Nausea and Vomiting Oxycodone HCl 5 mg 02/04/20 12:40 02/05/20 13:31 Oxycodone Hcl Immed Release 5 Mg Tablet PO 5 mg Q6H PRN Administration Pain, Moderate (Pain Scale 4-6 Pharmacy Consult 1 each 02/04/20 12:25 Consult Rx Perform Med Rec MISCELLANE ONCE PRN Consult order Sodium Chloride 3 ml 02/04/20 17:32 02/05/20 16:23 0.9 % Sodium Chloride Flush 3 Ml Syringe IVFLUSH 3 ml QSHIFT GUERA Administration Labs CBC & Chem 7: 02/05/20 05:31 02/05/20 05:31 Microbiology Microbiology Results: Microbiology 02/04/20 14:50 Blood - Venous Blood Culture - Preliminary No growth after 24 hours. 02/04/20 12:55 Blood - Venous Blood Culture - Preliminary No growth after 24 hours. Assessment and Plan (1) MSSA bacteremia: Status: Acute (2) Vegetative endocarditis: Status: Acute (3) Sepsis: Status: Acute Assessment and Plan: This is a 19-year-old transgender (female to male) who presents after leaving AMA from [facility] where he was being treated for tricuspid valve endocarditis, MSSA bacteremia, septic PE 1. Sepsis, tricuspid valve endocarditis, MSSA bacteremia Nafcillin Id consult appreciated Follow-up blood cultures -- last cultures from [facility] reported to be still positive PICC line once cultures negative 2. Opiate use disorder Interested in cessation For now will treat symptomatically. 3. UTI at [facility] Completed treatment there, urine negative and no cultures now Full code DVT prophylaxis, low risk
[2020-02-05] MEDS: traZODone HCL 25 MG HALFTAB 12.5 MG PO (22:29)
[2020-02-06] MEDS: Nafcillin Sodium 2 GM in 0.9 % Sodium Chloride 100 ML IV ×6 (00:31→19:43)
[2020-02-06] MEDS: 0.9 % Sodium Chloride Flush 3 ML SYRINGE IVFLUSH ×3 (00:31→16:08)
[2020-02-06 03:37] VITALS: BP 105/56; PULSE 84; RESP 18; TEMP 36.9; O2SAT 100
[2020-02-06 06:55] LABS: Hematocrit 31.3 % (37-47); Hemoglobin 10.1 g/dl (12.0-16.0); Mean Corpuscular HGB Conc 32.3 g/dl (31.0-35.0); Mean Corpuscular Hemoglobin 30.6 pg (27.0-33.0); Mean Corpuscular Volume 94.8 fL (80-98); Mean Platelet Volume 8.6 fL (9.4-12.3); Platelet Count 374 X10*3/uL (160-400)
[2020-02-06 07:10] LABS: Anion Gap 13 (12-20); Blood Urea Nitrogen 5 mg/dL (9-16); Carbon Dioxide 25 mmol/L (22-29); Chloride 102 mmol/L (96-108); Creatinine Clr Calc Pharmacy 122.3; Estimated Glomerular Filt Rate > 60; Glucose Random 110 mg/dL (60-115); Potassium 4.2 mmol/l (3.3-5.1); Sodium 136 mmol/L (135-145)
[2020-02-06] MEDS: Nicotine 14 MG PATCH.TD24 TRANSDERMA (07:53)
[2020-02-06 08:00] VITALS: BP 108/58; PULSE 93; RESP 18; TEMP 37.2; O2SAT 98
[2020-02-06 11:38] VITALS: BP 111/59; PULSE 108; RESP 18; TEMP 37; O2SAT 97
[2020-02-06] MEDS: oxyCODONE HCl Immed Release 5 MG TABLET PO ×2 (12:48→19:51)
--- NOTE | 2020-02-06 14:28 | P.PNIM_ITS ---
Subjective Subjective Date of Service: 02/06/20 Interval History: seen and examined no new issues ROS General - no fevers or chills Cardiovascular - no chest pain Respiratory - no shortness of breath or cough Abdominal- no abdominal pain, nausea, vomiting, diarrhea Physical Exam Vital Signs: Vital Signs: Last Vital Signs Temp 98.6 F 02/06/20 11:38 Pulse 108 H 02/06/20 11:38 Resp 18 02/06/20 11:38 BP 111/59 L 02/06/20 11:38 Pulse Ox 97 02/06/20 11:38 Body Mass Index 19.3 Const: Other: General - no acute distress, appears comfortable Cardiovascular - regular rate and rhythm, S1-S2 Lungs - normal respiratory effort, clear to auscultation bilaterally, no whee zing Abdomen - soft, nontender, no rebound or guarding Extremities - no edema bilaterally Neuro - awake and alert, no focal deficits Objective Data Current Medications Generic Name Dose Route Start Last Admin Trade Name Freq PRN Reason Stop Dose Admin Acetaminophen 650 mg 02/04/20 17:32 02/04/20 23:54 Acetaminophen 325 Mg Tablet PO 650 mg Q6H PRN Administration Pain, Mild (Pain Scale 1-3) Docusate Sodium 100 mg 02/04/20 17:32 Docusate Sodium 100 Mg Capsule PO DAILY PRN Constipation Nafcillin Sodium 2 gm/ Sodium 100 mls @ 200 mls/hr 02/04/20 14:48 02/06/20 14:14 Chloride IV Infused RQ4H GUERA Infusion Nicotine 14 mg 02/05/20 10:15 02/06/20 07:53 Nicotine 14 Mg Patch.Td24 TRANSDERMA 14 mg DAILY GUERA Administration Ondansetron HCl 4 mg 02/04/20 17:32 Ondansetron Hcl 4 Mg/2 Ml Vial IVPUSH Q8H PRN Nausea and Vomiting Oxycodone HCl 5 mg 02/04/20 12:40 02/06/20 12:48 Oxycodone Hcl Immed Release 5 Mg Tablet PO 5 mg Q6H PRN Administration Pain, Moderate (Pain Scale 4-6 Pharmacy Consult 1 each 02/04/20 12:25 Consult Rx Perform Med Rec MISCELLANE ONCE PRN Consult order Sodium Chloride 3 ml 02/04/20 17:32 02/06/20 07:53 0.9 % Sodium Chloride Flush 3 Ml Syringe IVFLUSH 3 ml QSHIFT GUERA Administration Labs CBC & Chem 7: 02/06/20 05:39 02/06/20 05:39 Microbiology Microbiology Results: Microbiology 02/04/20 14:50 Blood - Venous Blood Culture - Preliminary No growth after 24 hours. 02/04/20 12:55 Blood - Venous Blood Culture - Preliminary No growth after 24 hours. Assessment and Plan (1) MSSA bacteremia: Status: Acute (2) Vegetative endocarditis: Status: Acute (3) Sepsis: Status: Acute Assessment and Plan: This is a 19-year-old transgender (female to male) who presents after leaving AMA from [facility] where he was being treated for tricuspid valve endocarditis, MSSA bacteremia, septic PE 1. Sepsis, tricuspid valve endocarditis, MSSA bacteremia blood cx neg thus far Nafcillin Id consult appreciated PICC line once cultures negative + patient has accepting facility 2. Opiate use disorder Interested in cessation For now will treat symptomatically. 3. UTI at [facility] Completed treatment there, urine negative and no cultures now Full code DVT prophylaxis, low risk
[2020-02-06 15:12] VITALS: BP 108/63; PULSE 112; RESP 18; TEMP 37; O2SAT 98
[2020-02-06] MEDS: Acetaminophen 325 MG TABLET 650 MG PO (16:18)
[2020-02-06 19:53] VITALS: BP 105/60; PULSE 102; RESP 8; TEMP 37.2; O2SAT 98
[2020-02-06] MEDS: traZODone HCL 25 MG HALFTAB PO (21:25)
[2020-02-06 23:57] VITALS: BP 106/57; PULSE 65; RESP 18; TEMP 36.6; O2SAT 100
[2020-02-07] VITALS (7 sets, daily range): BP systolic 92–114; BP diastolic 52–68; PULSE 78–108; RESP 16–20; TEMP 36.7–37; O2SAT 97–99
[2020-02-07] MEDS: Nafcillin Sodium 2 GM in 0.9 % Sodium Chloride 100 ML IV ×6 (00:24→21:12)
[2020-02-07] MEDS: 0.9 % Sodium Chloride Flush 3 ML SYRINGE IVFLUSH ×3 (00:25→15:55)
[2020-02-07 08:41] LABS: Hematocrit 38.4 % (37-47); Hemoglobin 12.1 g/dl (12.0-16.0); Mean Corpuscular HGB Conc 31.5 g/dl (31.0-35.0); Mean Corpuscular Hemoglobin 30.5 pg (27.0-33.0); Mean Corpuscular Volume 96.7 fL (80-98); Platelet Count 551 X10*3/uL (160-400); Red Blood Count 3.97 X10*6/uL (4.20-5.50); Red Cell Distribution Width 17.1 % (11.0-16.0); White Blood Count 14.7 X10*3/uL (4.8-10.8)
[2020-02-07] MEDS: Nicotine 14 MG PATCH.TD24 TRANSDERMA (08:59)
[2020-02-07] MEDS: oxyCODONE HCl Immed Release 5 MG TABLET PO ×3 (08:59→19:26)
[2020-02-07] MEDS: Acetaminophen 325 MG TABLET 650 MG PO ×2 (09:00→15:10)
[2020-02-07 09:25] LABS: Anion Gap 14 (12-20); Blood Urea Nitrogen 5 mg/dL (9-16); Calcium 9.2 mg/dL (8.4-10.2); Carbon Dioxide 28 mmol/L (22-29); Chloride 101 mmol/L (96-108); Creatinine Clr Calc Pharmacy 116.8; Estimated Glomerular Filt Rate > 60; Glucose Random 100 mg/dL (60-115); Potassium 4.6 mmol/l (3.3-5.1); Sodium 138 mmol/L (135-145)
--- NOTE | 2020-02-07 11:49 | P.PNIM_ITS ---
Subjective Subjective Date of Service: 02/07/20 Interval History: seen and examined no new issues denies opiate withdrawal symptoms ROS General - no fevers or chills Cardiovascular - no chest pain Respiratory - no shortness of breath or cough Abdominal- no abdominal pain, nausea, vomiting, diarrhea Physical Exam Vital Signs: Vital Signs: Last Vital Signs Temp 98.6 F 02/07/20 08:15 Pulse 100 02/07/20 08:15 Resp 18 02/07/20 08:15 BP 103/57 L 02/07/20 08:15 Pulse Ox 97 02/07/20 08:15 Body Mass Index 19.3 Const: Other: General - no acute distress, appears comfortable Cardiovascular - regular rate and rhythm, S1-S2 Lungs - normal respiratory effort, clear to auscultation bilaterally, no wheezing Abdomen - soft, nontender, no rebound or guarding Extremities - no edema bilaterally Neuro - awake and alert, no focal deficits Objective Data Current Medications Generic Name Dose Route Start Last Admin Trade Name Freq PRN Reason Stop Dose Admin Acetaminophen 650 mg 02/04/20 17:32 02/07/20 09:00 Acetaminophen 325 Mg Tablet PO 650 mg Q6H PRN Administration Pain, Mild (Pain Scale 1-3) Docusate Sodium 100 mg 02/04/20 17:32 Docusate Sodium 100 Mg Capsule PO DAILY PRN Constipation Nafcillin Sodium 2 gm/ Sodium 100 mls @ 200 mls/hr 02/04/20 14:48 02/07/20 10:14 Chloride IV Infused RQ4H GUERA Infusion Nicotine 14 mg 02/05/20 10:15 02/07/20 08:59 Nicotine 14 Mg Patch.Td24 TRANSDERMA 14 mg DAILY GUERA Administration Ondansetron HCl 4 mg 02/04/20 17:32 Ondansetron Hcl 4 Mg/2 Ml Vial IVPUSH Q8H PRN Nausea and Vomiting Oxycodone HCl 5 mg 02/04/20 12:40 02/07/20 08:59 Oxycodone Hcl Immed Release 5 Mg Tablet PO 5 mg Q6H PRN Administration Pain, Moderate (Pain Scale 4-6 Pharmacy Consult 1 each 02/04/20 12:25 Consult Rx Perform Med Rec MISCELLANE ONCE PRN Consult order Sodium Chloride 3 ml 02/04/20 17:32 02/07/20 08:59 0.9 % Sodium Chloride Flush 3 Ml Syringe IVFLUSH 3 ml QSHIFT GUERA Administration Trazodone HCl 25 mg 02/06/20 20:55 02/06/20 21:25 Trazodone Hcl 25 Mg Halftab PO 25 mg BEDTIME PRN Administration Insomnia Labs CBC & Chem 7: 02/07/20 08:29 02/07/20 08:29 Microbiology Microbiology Results: Microbiology 02/04/20 12:55 Blood - Venous Blood Culture - Preliminary Staphylococcus species 02/04/20 14:50 Blood - Venous Blood Culture - Preliminary No growth after 48 hours. Assessment and Plan (1) MSSA bacteremia: Status: Acute (2) Vegetative endocarditis: Status: Acute (3) Sepsis: Status: Acute Assessment and Plan: This is a 19-year-old transgender (female to male) who presents after leaving AMA from [facility] where he was being treated for tricuspid valve endocarditis, MSSA bacteremia, septic PE 1. Sepsis, tricuspid valve endocarditis, MSSA bacteremia Blood cx from admission -- 1/2 positive for staph spp. -- will await to see final identity. repeat cx sent today Nafcillin Id consult appreciated PICC line once cultures negative + patient has accepting facility 2. Opiate use disorder Interested in cessation denies withdrawal symptoms today 3. UTI at [facility] Completed treatment there, urine negative and no cultures now Full code DVT prophylaxis, not ambulating while in the hospital, will give lovenox
[2020-02-07] MEDS: Enoxaparin Sodium 40 MG/0.4 ML SYRINGE SUBCUT (12:28)
--- NOTE | 2020-02-07 14:24 | MHC.CM.PN ---
CM MET WIT PT SATURDAY AFTERNOON AT PTS REQUEST. PT REPORTS BEING ANXIOUS ABOUT WHERE HE MAY BE SENT FOR IV ABX. CM EXPLAINED THE BARRIERS TO A LOCAL SNF PLACEMENT AND INFORMED HIM IT MAY HAVE TO BE AN LTAC. PT REPORTED HE WOULD LIKE TO GO BACK TO THE HOSPITAL HE WAS AT [facility]. HE REPORTS HE WANTS TO RETURN THERE EVEN IF NOT FOR THIS TREATMENT. PT REPORTS HE WAS AT [facility] IN [place] AND SAYS THERE WERE NURSES AND HE THINKS THEY COULD PROBABLY DO INFUSIONS THERE. CM INFORMED HIM THIS WOULD NEED TO BE EXPLORED ON SATURDAY.
[2020-02-07] MEDS: Ketorolac Tromethamine 15 MG/ML VIAL IVPUSH (22:51)
[2020-02-07] MEDS: traZODone HCL 25 MG HALFTAB PO (22:52)
[2020-02-07] MEDS: traZODone HCL 50 MG TABLET PO (23:37)
[2020-02-08] MEDS: Nafcillin Sodium 2 GM in 0.9 % Sodium Chloride 100 ML IV ×4 (01:03→14:17)
[2020-02-08] MEDS: 0.9 % Sodium Chloride Flush 3 ML SYRINGE IVFLUSH ×2 (01:04→10:15)
[2020-02-08 04:00] VITALS: BP 97/50; PULSE 96; RESP 18; TEMP 36.4; O2SAT 99
[2020-02-08 07:39] VITALS: BP 135/66; PULSE 66; RESP 20; TEMP 36.8; O2SAT 98
[2020-02-08] MEDS: Nicotine 14 MG PATCH.TD24 TRANSDERMA (10:14)
[2020-02-08] MEDS: oxyCODONE HCl Immed Release 5 MG TABLET PO (10:16)
[2020-02-08 11:05] VITALS: BP 97/51; PULSE 110; RESP 20; TEMP 37.1; O2SAT 98
[2020-02-08] MEDS: Enoxaparin Sodium 40 MG/0.4 ML SYRINGE SUBCUT (12:04)
--- NOTE | 2020-02-08 12:17 | PC.NURSE ---
P: bilat pleural pain I: PRN oxycodone 5mg previously given with no relief. Dr. Roth notified. E: Pt educated on pain control, aware that has been notified. Pt agreeable to plan of care at this time. Pt ambulates independently to BR and in room.
[2020-02-08] MEDS: Ibuprofen 400 MG TABLET PO (14:16)
--- NOTE | 2020-02-08 14:18 | HO.PM.IMPN ---
Subjective Subjective Date of Service: 02/08/20 Interval History: seen and examined pleuritic cp but otherwise no complaints ROS General - no fevers or chills Cardiovascular - no chest pain Respiratory - no shortness of breath or cough, pleurtic cp Abdominal- no abdominal pain, nausea, vomiting, diarrhea Physical Exam Vital Signs: Vital Signs: Last Vital Signs Temp 98.7 F 02/08/20 11:05 Pulse 110 H 02/08/20 11:05 Resp 20 02/08/20 11:05 BP 97/51 L 02/08/20 11:05 Pulse Ox 98 02/08/20 11:05 Body Mass Index 19.3 Const: Other: General - no acute distress, appears comfortable Cardiovascular - regular rate and rhythm, S1-S2 Lungs - normal respiratory effort, clear to auscultation bilaterally, no wheezing Abdomen - soft, nontender, no rebound or guarding Extremities - no edema bilaterally Neuro - awake and alert, no focal deficits Objective Data Current Medications Generic Name Dose Route Start Last Admin Trade Name Freq PRN Reason Stop Dose Admin Acetaminophen 650 mg 02/04/20 17:32 02/07/20 15:10 Acetaminophen 325 Mg Tablet PO 650 mg Q6H PRN Administration Pain, Mild (Pain Scale 1-3) Docusate Sodium 100 mg 02/04/20 17:32 Docusate Sodium 100 Mg Capsule PO DAILY PRN Constipation Enoxaparin Sodium 40 mg 02/07/20 12:00 02/08/20 12:04 Enoxaparin Sodium 40 Mg/0.4 Ml Syringe SUBCUT 40 mg Q24H GUERA Administration Nafcillin Sodium 2 gm/ Sodium 100 mls @ 200 mls/hr 02/04/20 14:48 02/08/20 14:17 Chloride IV 200 mls/hr RQ4H GUERA Administration Ibuprofen 400 mg 02/08/20 13:33 02/08/20 14:16 Ibuprofen 400 Mg Tablet PO 400 mg Q8H PRN Administration pleuritic pain Nicotine 14 mg 02/05/20 10:15 02/08/20 10:14 Nicotine 14 Mg Patch.Td24 TRANSDERMA 14 mg DAILY GUERA Administration Ondansetron HCl 4 mg 02/04/20 17:32 Ondansetron Hcl 4 Mg/2 Ml Vial IVPUSH Q8H PRN Nausea and Vomiting Oxycodone HCl 5 mg 02/07/20 18:49 02/08/20 10:16 Oxycodone Hcl Immed Release 5 Mg Tablet PO 5 mg Q4H PRN Administration Pain, Moderate (Pain Scale 4-6 Pharmacy Consult 1 each 02/04/20 12:25 Consult Rx Perform Med Rec MISCELLANE ONCE PRN Consult order Sodium Chloride 3 ml 02/04/20 17:32 02/08/20 10:15 0.9 % Sodium Chloride Flush 3 Ml Syringe IVFLUSH 3 ml QSHIFT GUERA Administration Trazodone HCl 25 mg 02/06/20 20:55 02/07/20 22:52 Trazodone Hcl 25 Mg Halftab PO 25 mg BEDTIME PRN Administration Insomnia Trazodone HCl 100 mg 02/08/20 21:00 Trazodone Hcl 100 Mg Tablet PO BEDTIME GUERA Labs CBC & Chem 7: 02/07/20 08:29 02/07/20 08:29 Microbiology Microbiology Results: Microbiology 02/07/20 08:25 Blood - Venous Blood Culture - Preliminary No growth after 24 hours. 02/07/20 08:29 Blood - Venous Blood Culture - Preliminary No growth after 24 hours. 02/04/20 12:55 Blood - Venous Blood Culture - Final Staphylococcus aureus 02/04/20 14:50 Blood - Venous Blood Culture - Preliminary No growth after 48 hours. Assessment and Plan (1) MSSA bacteremia: Status: Acute (2) Vegetative endocarditis: Status: Acute (3) Sepsis: Status: Acute Assessment and Plan: This is a 19-year-old transgender (female to male) who presents after leaving AMA from [facility] where he was being treated for tricuspid valve endocarditis, MSSA bacteremia, septic PE 1. Sepsis, tricuspid valve endocarditis, MSSA bacteremia blood cx from 02/03 -- 02/19 positive for MSSA, repeat from 02/06 neg @ 24 hours Nafcillin Id consult appreciated PICC line once cultures negative + patient has accepting facility prn oxycodone + ibuprofen for pain 2. Opiate use disorder Interested in cessation denies withdrawal symptoms 3. UTI at [facility] Completed treatment there, urine negative and no cultures now Full code DVT prophylaxis, not ambulating while in the hospital, will give lovenox
[2020-02-08 14:58] VITALS: BP 108/55; PULSE 115; RESP 20; TEMP 37.1; O2SAT 98
--- NOTE | 2020-02-08 15:42 | MHC.CM.PN ---
per rounds pt not ready for dc..vibra following
--- NOTE | 2020-02-08 15:53 | MHC.RECOVSUP ---
Recovery Support note: Patient ( Asa ) is a 19 year old Azeri speaking female to male transgender patient who presented to [facility] ED after leaving [facility]. Patient was medically admitted due to endocarditis. Patient reports he was recently section 35'd by his family to a facility in [place]. Patient is interested in going to this facility for his IV antibiotics. This telegraphic typewriter installer contacted facility and confirmed that they are unable to offer IV antibiotics, patient made aware. Patient reports anxiety related to going to new places and he is specifically concerned that he will not be able to smoke cigarettes wherever he is placed. Patient reports he is having a hard time remaining in care due to feeling confined. Patient reports that the pain medications are not helping and that he is interested in getting on Methadone if possible. Encouraged patient to reach out to staff if there is anything we can do to make him more comfortable. Patient is reporting cravings and states that if he leaves the hospital he will use. Patient acknowledges that the IV drug use has been detrimental to his health and states he is no longer going to use IV. Patient reports he was previously using 150 bags a day but brought it down to 2 bags prior to his section 35. Patient reports he does not find groups helpful due to his anxiety. Discussed outpatient therapy with patient. Patient reports he is not interested at this time but will consider it down the road. Discussed case with Giselle Marshall NP, patient's RN and CM. This telegraphic typewriter installer will follow up with patient tomorrow. This telegraphic typewriter installer awaits a call back from the LTAC patient has been referred to see if they allow smoking. This telegraphic typewriter installer available as needed.
--- NOTE | 2020-02-08 16:41 | PM.EVENT ---
Event Note Date of Service: 02/08/20 Event Note: AMA Note: Called by Rn to report that the patient wanted to leave against medical advice. Pt seen bedside. Explained to him the risks of leaving AMA which include worsening of his MSSA bactermia, worsening of his endocarditis / septic pulmonary emobli, the potential for cardiac compromise, cerebral emboli and ultimately even . Patient is awake and alert. Oriented x 3. He is able to explain back to me the consequences of leaving AMA. He tells me that he needs to go home for a few days and be with his family before committing himself to 6 weeks of IV antibiotics. He tells me that he has not seen them in quiet some time and is willing to risk the above mentioned outcomes. I have informed him that he should not leave against medical advice as he did from [facility] just a few days back, but he does not heed my advice. Have informed him that he should return to the hospital immediately if he changes his mind. Patient will signout AMA. Discharge diagnosis: 1.Sepsis secondary to MSSA Bacteremia 2. Tricuspid Endocarditis 3. Septic Pulmonary Emobli 4. Opiate Dependence
== END 2020-02-08 16:52 | disposition left against medical advice (07) | DRG 871 ==
LOC: HO.ED 14:13 → HO.IMC 16:17
PROVIDERS: Physician Assistant Medical; Admitting Provider Family Medicine; Emergency Provider Emergency Medicine Emergency Medical Services; Visit Provider Family Medicine
DX: A41.01 Sepsis due to Methicillin susceptible Staphylococcus aureus (principal); I26.90 Septic pulmonary embolism without acute cor pulmonale; F11.20 Opioid dependence, uncomplicated; I07.9 Rheumatic tricuspid valve disease, unspecified; F17.210 Nicotine dependence, cigarettes, uncomplicated; Z71.6 Tobacco abuse counseling; F64.0 Transsexualism; Z20.828 Contact with and (suspected) exposure to other viral communicable diseases
CPT/HCPCS: 36415; 71046; 71250; 80048; 80076; 80307; 80320; 81001; 81025; 83605; 83735; 83880; 84484; 85007; 85025; 85027; 85610; 85730; 87040; 87077; 87147; 87186; 87635; 93005; 93971; 96361; 96365; 96366; 96367; 99285; 99291; J1650; J1885

== ENCOUNTER 2020-02-10 19:32 | Inpatient (IN) | payer OTHER, SELFPAY ==
--- NOTE | 2020-02-10 19:40 | PC.NURSE ---
assumed care of pt. pt resting in stretcher without complaints. vs obtained. pt states i have an infection in my heart valve. pt states i was here and signed out AMA . pt awaiting md's eval. pt chg into gown.
[2020-02-10 19:41] VITALS: BP 119/73; PULSE 112; RESP 16; TEMP 36.6; O2SAT 100; BMI 18.1
--- NOTE | 2020-02-10 19:55 | ECG_ITS ---
Test Reason : GENERAL MEDICAL Blood Pressure : / mmHG Vent. Rate : 102 BPM Atrial Rate : 102 BPM P-R Int : 136 ms QRS Dur : 090 ms QT Int : 350 ms P-R-T Axes : 041 074 022 degrees QTc Int : 456 ms Sinus tachycardia Otherwise normal ECG When compared with ECG of 04-FEB-2020 14:39, No significant change was found Referred By: Candi Nina Electronically Signed By:PEMA PAYNE MD
[2020-02-10 20:00] VITALS: BP 112/63; PULSE 104; RESP 17; TEMP 36.7; O2SAT 98
[2020-02-10 20:01] VITALS: O2SAT 95
--- NOTE | 2020-02-10 20:05 | ED_ITS ---
HPI - General Adult General Chief complaint: General Medical Stated complaint: BLOOD INFECTION Time Seen by Provider: 02/10/20 19:45 Source: patient Mode of arrival: ambulatory Limitations: no limitations History of Present Illness HPI narrative: 19yo Female to male transition and would prefer to be called by pronoun He/him or Asa , IV drug user of heroin/cocaine, tabocco use, PSHx of mastectomy who is presenting to the ED after leaving AMA from [facility] for endocarditis with vegetation to tricuspid valve, subsequently leaving [facility] AMA 02/07 with sepsis secondary to MSSA Bacteremia, tricuspid endocarditis, septic pulmonary emobli. During that admission the patient was seen by infectious disease and was recommended that a 6 week course of nafcillin 2 g every 4 hours be done. Patient returns today. He tells me that he has been feeling weak but has not had any fevers. No chest pain, shortness of breath, cough, leg swelling. The patient does have some bilateral knee pain which he tells me is chronic and is unchanged from previous. He has weaned himself down to 1 bag of heroin daily and his last use was 2 days ago. He is no longer using cocaine Relieving factors: none Exacerbating factors: none Associated symptoms: denies other symptoms Treatments prior to arrival: none Related Data Home Medications Medication Instructions Recorded Confirmed No Known Home Meds 02/04/20 02/04/20 Allergies Allergy/AdvReac Type Severity Reaction Status Date / Time No Known Allergies Allergy Verified 02/10/20 19:44 [No Known Allergies*] Review of Systems Review of Systems: Yes all other systems are reviewed and are negative Constitutional: Constitutional: Reports no additional constitutional complaints, Denies body ache(s), Denies chills, Denies fever(s), Denies headache(s) and Reports weakness Eyes: Eyes: Reports no additional eye complaints and Denies change in vision ENT: Reports system reviewed and no additional complaints, except as documented, Denies dizziness, Denies headache(s), Denies nasal congestion, Denies nasal discharge and Denies neck pain Cardiovascular: Cardiovascular: Reports no additional cardiovascular complai nts, Denies chest pain, Denies leg edema and Denies dyspnea Respiratory: Respiratory: Reports no additional respiratory complaints, Denies cough and Denies dyspnea Gastrointestinal: Gastrointestinal: Reports no additional gastrointestinal complaints, Denies abdominal pain, Denies diarrhea, Denies nausea and Denies vomiting Genitourinary: Genitourinary: Reports no additional female genitourinary complaints and Denies urinary incontinence Musculoskeletal: Musculoskeletal: Reports no additional musculoskeletal complaints, Denies back pain, Reports arthralgias, Denies joint swelling, Denies neck pain, Denies numbness and Denies tingling Integumentary/Breasts: Skin/Breast: Reports system reviewed and no additional complaints, except as docu and Denies rash Neurologic: Reports system reviewed and no additional complaints, except as documented, Denies Abnormal speech present, Denies dizziness, Denies headache(s), Denies numbness, Denies tingling and Reports weakness PMFSH Past Medical History Attestation statement: The following information was validated with the patient. Source: old records reviewed and nursing notes reviewed Medical History Cocaine abuse IV drug abuse Opiate addiction Surgical History H/O mastectomy Family History Family History Other Adopted Social History Social History Housing: Homeless Alcohol intake: current Alcohol intake frequency: a few times a month Smoking Status: Current some day smoker Tobacco Type: Cigarette Substance Use Type: Crack/Cocaine and Opiates Advance Directives: No Advance Directives Information Provided: No service: No Current occupational status: unemployed Physical Exam Vital Signs: Vital Signs: Last Vital Signs Temp 98.0 F 02/10/20 20:00 Pulse 104 H 02/10/20 20:00 Resp 17 02/10/20 20:00 BP 112/63 02/10/20 20:00 Pulse Ox 98 02/10/20 20:00 Body Mass Index 18.1 Const: General: cooperative, healthy appearing, comfortable and no acute di stress Orientation/consciousness: patient oriented x3 Limitations: no limitations HENMT: Head: Yes normal to inspection Ears: hearing grossly normal bilaterally General nose exam: Normal external nose present Face and sinus: Yes normal facial exam Mouth: Normal oral and palatal mucosa present Throat: Yes posterior oropharynx normal Eyes: General: appearance normal, both eyes and all related structures Pupils: Equal, round and reactive pupils present Neck: Neck: Yes normal visual inspection Chest: Chest palpation & inspection: normal inspection of the chest Resp: Effort & Inspection: normal respiratory effort Auscultation: clear to auscultation bilaterally Cardio: Rate: regular rate Rhythm: regular rhythm Peripheral pulses: Peripheral pulses 2+ throughout GI: Inspection: Yes normal to inspection Palpation (GI): Soft to palpation and nontender Auscultation: normal bowel sounds Back/Spine/Pelvis: Thoracic/Lumbar Spine: thoracic and lumbar spine normal to inspection Skin: General skin exam: no rashes or lesions noted Neuro: General: patient oriented x3, no focal motor deficits and normal sensation to monofilament Cranial nerves: Yes Equal, round and reactive pupils present Cognition (Neuro): normal cognition Speech: No Abnormal speech present Gait exam (Neuro): Normal gait present Motor exam (neuro): 5/5 motor strength present throughout Extrem: General: Yes normal to inspection and Yes no pedal edema Course Course Course Narrative: 19 yo with known MSSA bacteremia, tricuspid endocarditis and septic PE who left AMA from this facility 02/07. he tells me he has returned today for previously recommended PICC placement and 6 weeks of IV antibiotics. C/o generalized weakness, chronic LE knee pain. Will need labs including blood cultures and lactic acid, EKG, UA, ur preg and COVID testing. Antibiotics ordered per ID recommendations. 2100-difficult access. I placed an EJ at the bedside and labs were sent. Discussion with hospitalist Dr. Willingham who did not feel like the patient needed admission, could stay here overnight and have picc placed in the morning, involve case management and go to [facility] for IV antibiotics. I discussed this with my attending Dr Galindo who is unsure this can be facilitated with upcoming holiday. Plan for labs, EKG, then re-discussion with medicine team. Sign out to Colette BANDA pending above. Procedures EJ/Peripheral Line Neck L: Time Out Performed: No Skin Cleansed in Sterile Fashion: Yes Size (gauge): 18 IV Secured and Dressing Applied: Yes Patient Tolerated Procedure: well Medical Decision Making Medical Records Medical records reviewed: Yes I reviewed the patient's medical records. Lab Data Lab results reviewed: Yes I reviewed the patient's lab results. Result diagrams: 02/10/20 20:48 02/10/20 20:48 Labs: Lab Results 02/10/20 02/10/20 Range/Units 20:48 20:48 WBC 13.4 H (4.8-10.8) X10*3/uL RBC 3.34 L (4.20-5.50) X10*6/uL Hgb 10.4 L (12.0-16.0) g/dl Hct 33.3 L (37-47) % MCV 99.7 H (80-98) fL MCH 31.1 (27.0-33.0) pg MCHC 31.2 (31.0-35.0) g/dl RDW 17.0 H (11.0-16.0) % Plt Count 506 H (160-400) X10*3/uL MPV 7.7 L (9.4-12.3) fL Immature Gran % (Auto) 0.9 H (0.0-0.4) % Neut % (Auto) 71.0 (45-73) % Lymph % (Auto) 15.8 L (20-40) % [place] % (Auto) 9.6 (2-11) % Eos % (Auto) 2.3 (0-4) % Baso % (Auto) 0.4 (0-2) % Lymph # (Auto) 2.1 (1.2-4.9) X10*3/uL [place] # (Auto) 1.3 H (0.1-1.2) X10*3/uL Eos # (Auto) 0.3 (0.0-0.4) X10*3/uL Baso # (Auto) 0.1 (0.0-0.2) X10*3/uL Abs Immat Gran (auto) 0.12 H (0.00-0.03) X10*3/uL Absolute Neuts (auto) 9.5 H (2.0-8.3) X10*3/uL Absolute Nucleated RBC 0.000 (0.0-0.012) X10*3/uL Nucleated RBC % (auto) 0.0 (0.0-0.2) /100WBC Hold Blue Top SEE NOTE ECG Data Attestation: I personally reviewed and interpreted this ECG as follows: Interpretation: Sinus tachycardia with a rate of 102, normal MT, normal QRS, normal QT Discharge Plan Discharge Clinical Impression: Vegetative endocarditis, MSSA bacteremia Prescriptions: No Action No Known Home Meds RF: 0
[2020-02-10 21:07] LABS: Basophils Absolute Auto 0.1 X10*3/uL (0.0-0.2); Basophils Percent Auto 0.4 % (0-2); Eosinophils Absolute Auto 0.3 X10*3/uL (0.0-0.4); Eosinophils Percent Auto 2.3 % (0-4); Hematocrit 33.3 % (37-47); Hemoglobin 10.4 g/dl (12.0-16.0); Imm Gran Abs Auto 0.12 X10*3/uL (0.00-0.03); Imm Gran Pct Auto 0.9 % (0.0-0.4); Lymphocytes Absolute Auto 2.1 X10*3/uL (1.2-4.9); Lymphocytes Percent Auto 15.8 % (20-40); MANUAL DIFF FLAG NO; Mean Corpuscular HGB Conc 31.2 g/dl (31.0-35.0); Mean Corpuscular Hemoglobin 31.1 pg (27.0-33.0); Mean Corpuscular Volume 99.7 fL (80-98); Mean Platelet Volume 7.7 fL (9.4-12.3); Monocytes Absolute Auto 1.3 X10*3/uL (0.1-1.2); Monocytes Percent Auto 9.6 % (2-11); Neutrophils Absolute Auto 9.5 X10*3/uL (2.0-8.3); Platelet Count 506 X10*3/uL (160-400); Red Blood Count 3.34 X10*6/uL (4.20-5.50); White Blood Count 13.4 X10*3/uL (4.8-10.8)
[2020-02-10 21:18] LABS: COVID-19 Test Negative (Negative)
[2020-02-10 21:21] LABS: Glucose Urine UA NEG (NEG); Leukocyte Esterase Urine NEG (NEG); Nitrite Urine NEG (NEG); PH 5.5 (5.0-8.0); Specific Gravity - Urine >= 1.030 (1.005-1.025); Urine Blood NEG (NEG); Urine Ketones NEG (NEG); Urine Protein NEG (NEG-TRACE)
[2020-02-10 21:30] LABS: Anion Gap 12 (12-20); Blood Urea Nitrogen 11 mg/dL (9-16); Calcium 8.7 mg/dL (8.4-10.2); Carbon Dioxide 30 mmol/L (22-29); Chloride 100 mmol/L (96-108); Creatinine Clr Calc Pharmacy 111.1; Estimated Glomerular Filt Rate > 60; Glucose Random 79 mg/dL (60-115); Potassium 4.1 mmol/l (3.3-5.1); Sodium 138 mmol/L (135-145)
--- NOTE | 2020-02-10 21:30 | PC.NURSE ---
pt is a difficulty stick d/t several track lópez on jackson arms. EJ to left side of neck obtained by pa. site intact. Pt awaiting further orders.
[2020-02-10] MEDS: Nafcillin Sodium 2 GM in 0.9 % Sodium Chloride 100 ML IV (21:31)
[2020-02-10 21:32] LABS: Appearance Urine CLEAR; Color Urine YELLOW
[2020-02-10 21:36] LABS: Troponin-I High Sensitivity < 3.5 ng/L (<3.5-17.0)
[2020-02-10 22:00] VITALS: BP 107/58; PULSE 104; RESP 16; TEMP 36.9; O2SAT 97
--- NOTE | 2020-02-10 22:51 | PC.NURSE ---
HOSPITALIST IN ROOM FOR EVAL.
--- NOTE | 2020-02-10 23:26 | P.HPHOSP_ITS ---
History of Present Illness Date of Service: 02/10/20 Chief Complaint: Endocarditis This is a 19 year old transgender female to Male with history of IV drug abuse who presents due to endocarditis. He initially left AMA from [facility] on 02/03/2020 where he was being treated for tricuspid valve endocarditis and MSSA bacteremia. Came to [facility] on 02/03, because he wanted to be treated locally but then left [facility] on 02/07 to be with his gf for 1 last night before going to [place] for IV abx. Pt was being treated w Naficilin and awaiting PICC placement before going to accepting facility but left AMA> he retruns today, stating ready to start 6 wks of IV treatment. 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 Patient found to have a temp of 97.8?, heart rate of 112, respiratory rate of 16, blood pressure of 119/73, and satting 100% on room air. For improving WBC count of 13.4, sodium of 138, potassium 4.1, chloride of 100, otherwise unremarkable Will admit for PICC line and placement Past medical history: IV drug abuse, cocaine abuse, endocarditis, MSSA bactere kushal, embolic PE Past surgical history: Mastectomy Family history: It does not know his adopted Social history: Currently homeless, smokes sometimes, drinks socially, uses both cocaine and heroin daily Review of Systems Review of Systems: Yes all other systems are reviewed and are negative Constitutional: Constitutional: Denies headache(s) and Reports weakness ENT: Denies dizziness and Denies headache(s) Musculoskeletal: Musculoskeletal: Denies numbness and Denies tingling Neurologic: Reports system reviewed and no additional complaints, except as documented, Denies Abnormal speech present, Denies dizziness, Denies headache(s), Denies numbness, Denies tingling and Reports weakness [facility] Medical History (Updated 02/10/20 @ 23:55 by Quirino Willingham MD) Cocaine abuse IV drug abuse MSSA bacteremia Opiate addiction Vegetative endocarditis Family History Other Adopted Surgical History H/O mastectomy Social History Housing: Homeless Alcohol intake: current Alcohol intake frequency: a few times a month Smoking Status: Current some day smoker Tobacco Type: Cigarette Substance Use Type: Crack/Cocaine and Opiates Advance Directives: No Advance Directives Information Provided: No service: No Current occupational status: unemployed Meds Allergies Allergy/AdvReac Type Severity Reaction Status Date / Time No Known Allergies Allergy Verified 02/10/20 19:44 [No Known Allergies*] Home Medications Medication Instructions Recorded Confirmed Type No Known Home Meds 02/04/20 02/10/20 History Physical Exam Vital Signs and Narrative: Vital Signs: Last Vital Signs Temp 98.5 F 02/10/20 22:00 Pulse 104 H 02/10/20 22:00 Resp 16 02/10/20 22:00 BP 107/58 L 02/10/20 22:00 Pulse Ox 97 02/10/20 22:00 Body Mass Index 18.1 Const: General: cooperative and no acute distress Orientation/consciousness: patient oriented x3 Eyes: General: appearance normal, both eyes and all related structures Resp: Effort & Inspection: normal respiratory effort and able to speak in complete sentences Cardio: Rate: regular rate Rhythm: regular rhythm GI: Palpation (GI): Soft to palpation Auscultation: normal bowel sounds Skin: General skin exam: no rashes or lesions noted Neuro: General: patient oriented x3 Cognition (Neuro): normal cognition Speech: No Abnormal speech present Extrem: General: Yes normal to inspection and Yes no pedal edema Results Labs CBC and Chem 7: 02/10/20 20:48 02/10/20 20:48 Labs: Laboratory Results - last 24 hr 02/10/20 02/10/20 02/10/20 20:48 20:48 20:48 MCV 99.7 H MCH 31.1 MCHC 31.2 RDW 17.0 H Plt Count 506 H MPV 7.7 L Immature Gran % (Auto) 0.9 H Neut % (Auto) 71.0 Lymph % (Auto) 15.8 L Hart % (Auto) 9.6 Eos % (Auto) 2.3 Baso % (Auto) 0.4 Lymph # (Auto) 2.1 Hart # (Auto) 1.3 H Eos # (Auto) 0.3 Baso # (Auto) 0.1 Abs Immat Gran (auto) 0.12 H Absolute Neuts (auto) 9.5 H Absolute Nucleated RBC 0.000 Nucleated RBC % (auto) 0.0 Hold Blue Top Anion Gap 12 Estim Creat Clear Calc 111.1 Estimated GFR > 60 Random Glucose 79 Lactic Acid 1.0 Calcium 8.7 Troponin I High Sens Urine Color Urine Appearance Urine pH Ur Specific [place] Urine Protein Urine Glucose (UA) Urine Ketones Urine Blood Urine Nitrite Ur Leukocyte Esterase COVID-19 (WEND[facility]) COVID-19 Clin Com 02/10/20 02/10/20 02/10/20 20:48 20:48 20:51 MCV MCH MCHC RDW Plt Count MPV Immature Gran % (Auto) Neut % (Auto) Lymph % (Auto) Hart % (Auto) Eos % (Auto) Baso % (Auto) Lymph # (Auto) Hart # (Auto) Eos # (Auto) Baso # (Auto) Abs Immat Gran (auto) Absolute Neuts (auto) Absolute Nucleated RBC Nucleated RBC % (auto) Hold Blue Top SEE NOTE Anion Gap Estim Creat Clear Calc Estimated GFR Random Glucose Lactic Acid Calcium Troponin I High Sens < 3.5 Urine Color Urine Appearance Urine pH Ur Specific [place] Urine Protein Urine Glucose (UA) Urine Ketones Urine Blood Urine Nitrite Ur Leukocyte Esterase COVID-19 (WENDY) Negative COVID-19 Clin Com See Note 02/10/20 20:58 MCV MCH MCHC RDW Plt Count MPV Immature Gran % (Auto) Neut % (Auto) Lymph % (Auto) Hart % (Auto) Eos % (Auto) Baso % (Auto) Lymph # (Auto) Hart # (Auto) Eos # (Auto) Baso # (Auto) Abs Immat Gran (auto) Absolute Neuts (auto) Absolute Nucleated RBC Nucleated RBC % (auto) Hold Blue Top Anion Gap Estim Creat Clear Calc Estimated GFR Random Glucose Lactic Acid Calcium Troponin I High Sens Urine Color YELLOW Urine Appearance CLEAR Urine pH 5.5 Ur Specific [place] >= 1.030 H Urine Protein NEG Urine Glucose (UA) NEG Urine Ketones NEG Urine Blood NEG Urine Nitrite NEG Ur Leukocyte Esterase NEG COVID-19 (WENDY) COVID-19 Clin Com Assessment and Plan (1) MSSA bacteremia: Status: Acute (2) Vegetative endocarditis: Status: Acute (3) Opiate addiction: Status: Acute (4) Cocaine abuse: Status: Acute This is a 19-year-old transgender (female to male) who presents after leaving AMA from [facility] on 02/07 where he was being treated for sepsis 2/2 endocarditis, and MSSA bacteremia He returns today, wanting placement and starting abx 1.tricuspid valve endocarditis, MSSA bacteremia - blood cx from 02/03 -- 1/2 positive for MSSA, repeat from 02/06 neg @ 24 hours - blood cultures collected today in ED- will follow results - Pt was being and planned to be treated with nafcillin for 6 weeks but left AMA. Plan: -continue nafcillin in 2 mg Q4hrs - 90 to consult ID at this time as patient was seen by them on recent admission and they recommended nafcillin as above - will plan for PICC line placement in a.m. as his repeat cultures from were negative - prn oxycodone + ibuprofen for pleuritic pain IR consult for PICC line placement 2. Opiate use disorder denies withdrawal symptoms Will start him on hydroxyzine as well as clonidine p.r.n. for withdrawal symptoms DVT prophylaxis: Heparin
[2020-02-11] VITALS (8 sets, daily range): BP systolic 96–105; BP diastolic 50–57; PULSE 83–111; RESP 16–18; TEMP 36.8–37.6; O2SAT 95–99
[2020-02-11] MEDS: Nafcillin Sodium 2 GM in 0.9 % Sodium Chloride 100 ML IV ×6 (02:05→22:03)
[2020-02-11] MEDS: Enoxaparin Sodium 40 MG/0.4 ML SYRINGE SUBCUT (06:16)
[2020-02-11] MEDS: 0.9 % Sodium Chloride Flush 3 ML SYRINGE IVFLUSH ×3 (06:18→15:40)
--- NOTE | 2020-02-11 06:51 | PC.NURSE ---
patient admitted via wheelchair from ed to [facility]. skin assessment documented kristofer intervention; pt pointed out a tender spot to him in upper inner coccyx area, it is light red, hard to see, pt put fingertip to area that is tender. no open area, no drng, blanchable, and no odor. pt declined cream to be applied, but then later took the barrier cream and voiced he would do it himself if neede, he also declined a photo. area noted to be very tiny. He was encouraged to change position frequently, and agreeable.
[2020-02-11 07:39] LABS: Basophils Percent Auto 0.4 % (0-2); Eosinophils Absolute Auto 0.3 X10*3/uL (0.0-0.4); Eosinophils Percent Auto 2.6 % (0-4); Hematocrit 33.4 % (37-47); Hemoglobin 10.4 g/dl (12.0-16.0); Imm Gran Abs Auto 0.08 X10*3/uL (0.00-0.03); Imm Gran Pct Auto 0.8 % (0.0-0.4); Lymphocytes Absolute Auto 1.7 X10*3/uL (1.2-4.9); Lymphocytes Percent Auto 15.9 % (20-40); MANUAL DIFF FLAG NO; Mean Corpuscular HGB Conc 31.1 g/dl (31.0-35.0); Mean Corpuscular Hemoglobin 31.2 pg (27.0-33.0); Mean Corpuscular Volume 100.3 fL (80-98); Mean Platelet Volume 7.8 fL (9.4-12.3); Monocytes Absolute Auto 0.9 X10*3/uL (0.1-1.2); Monocytes Percent Auto 8.6 % (2-11); Neutrophils Absolute Auto 7.7 X10*3/uL (2.0-8.3); Neutrophils Percent Auto 71.7 % (45-73); Platelet Count 433 X10*3/uL (160-400); Red Blood Count 3.33 X10*6/uL (4.20-5.50); White Blood Count 10.7 X10*3/uL (4.8-10.8)
[2020-02-11 07:58] LABS: Anion Gap 13 (12-20); Blood Urea Nitrogen 9 mg/dL (9-16); Calcium 8.6 mg/dL (8.4-10.2); Carbon Dioxide 28 mmol/L (22-29); Chloride 100 mmol/L (96-108); Creatinine Clr Calc Pharmacy 106.3; Estimated Glomerular Filt Rate > 60; Glucose Random 89 mg/dL (60-115); Potassium 4.5 mmol/l (3.3-5.1); Sodium 136 mmol/L (135-145)
--- NOTE | 2020-02-11 09:40 | MHC.CM.PN ---
CM met with patient at the bedside who reports he is independent and homeless. Patient is transgender female to male and likes to be called ASA. Patient has left AMA last admission and states he is ready for 6 wks IV ABT. Patient does not have a HCP and declines filling one out today. Discussed discharge plan, instructed r/t age and IVDA history patient will only be able to go to [facility] at [facility]. Patient agrees to referal to [facility], referral made via allscripts. Patient will need BLS transport. CM will continue to follow patient for discharge needs..
--- NOTE | 2020-02-11 11:44 | P.CDIC_ITS ---
CDI Concurrent Query Service Date: 02/12/20 Documentation Clarification: Please clarify if you are treating a proba ble/suspected/likely or confirmed: Bacteremia Sepsis Provider Response: Sepsis PLEASE DO NOT DELETE/MODIFY EXISTING CONTENT Additional information is needed in order to code to the highest accuracy and appropriate Severity of Illness (SOI). Please clarify the information noted below in your progress notes and discharge summary. Risk Factors/Clinical Indicators/Treatments 19 year old female to male transition admit with Vegetative Endocarditis, MSSA Bacteremia, Opiate Use Disorder Needs PICC and 6 weeks antibiotic therapy WBC 13.1 T98.0, P 104, R 17, BP 112/63, SAT 98% LA 1.0 Blood culture pending CDS: Dalia Falk RN Contact Number: [phone] Please Review the information above and exercise your independent professional judgment in responding to the query. If you concur, pleas document in the PROGRESS NOTES and DISCHARGE SUMMARY. If you do not agree with the query, please document in the query above. THIS QUERY IS PART OF THE PERMANENT MEDICAL RECORD
--- NOTE | 2020-02-11 16:05 | HO.PM.IMPN ---
Subjective Subjective Date of Service: 02/11/20 Interval History: Patient seen and examined at bedside patient denies any complaint Constitutional Constitutional: Reports no additional constitutional complaints, Denies body ache(s), Denies chills, Denies fever(s), Denies headache(s) and Reports weakness Eyes Eyes: Reports no additional eye complaints and Denies change in vision ENT Ears, Nose, Mouth, and Throat: Reports system reviewed and no additional complaints, except as documented, Denies dizziness, Denies headache(s), Denies nasal congestion, Denies nasal discharge and Denies neck pain Cardiovascular Cardiovascular: Reports no additional cardiovascular complaints, Denies chest pain, Denies leg edema and Denies dyspnea Respiratory Respiratory: Reports no additional respiratory complaints, Denies cough and Denies dyspnea Gastrointestinal Gastrointestinal: Reports no additional gastrointestinal complaints, Denies abdominal pain, Denies diarrhea, Denies nausea and Denies vomiting Musculoskeletal Musculoskeletal: Reports no additional musculoskeletal complaints, Denies back pain, Reports arthralgias, Denies joint swelling, Denies neck pain, Denies numbness and Denies tingling Integumentary/Breasts Skin/Breast: Reports no additional skin complaints and Denies rash Neurologic Neurologic: Reports system reviewed and no additional complaints, except as documented, Denies Abnormal speech present, Denies dizziness, Denies headache(s), Denies numbness, Denies tingling and Reports weakness Physical Exam Vital Signs: Vital Signs: Last Vital Signs Temp 99.4 F 02/11/20 12:00 Pulse 111 H 02/11/20 12:00 Resp 18 02/11/20 12:00 BP 98/55 L 02/11/20 12:00 Pulse Ox 99 02/11/20 07:42 Body Mass Index 18.1 Const: General: cooperative, healthy appearing, comfortable and no acute distress Orientation/consciousness: patient oriented x3 Limitations: no limitations HENMT: Head: Yes normal to inspection Ears: hearing grossly normal bilaterally General nose exam: Normal external nose present Face and sinus: Yes normal facial exam Mouth: Normal oral and palatal mucosa present Throat: Yes posterior oropharynx normal Eyes: General: appearance normal, both eyes and all related structures Pupils: Equal, round and reactive pupils present Neck: Neck: Yes normal visual inspection Chest: Chest palpation & inspection: normal inspection of the chest Resp: Effort & Inspection: normal respiratory effort and able to speak in complete sentences Auscultation: clear to auscultation bilaterally Cardio: Rate: regular rate Rhythm: regular rhythm Peripheral pulses: Peripheral pulses 2+ throughout GI: Inspection: Yes normal to inspection Palpation (GI): Soft to palpation and nontender Auscultation: normal bowel sounds Back/Spine/Pelvis: Thoracic/Lumbar Spine: thoracic and lumbar spine normal to inspection Skin: General skin exam: no rashes or lesions noted Neuro: General: patient oriented x3, no focal motor deficits and normal sensation to monofilament Cranial nerves: Yes Equal, round and reactive pupils present Cognition (Neuro): normal cognition Speech: No Abnormal speech present Gait exam (Neuro): Normal gait present Motor exam (neuro): 5/5 motor strength present throughout Extrem: General: Yes normal to inspection and Yes no pedal edema Objective Data Current Medications Generic Name Dose Route Start Last Admin Trade Name Freq PRN Reason Stop Dose Admin Acetaminophen 650 mg 02/11/20 05:18 Acetaminophen 325 Mg Tablet PO Q6H PRN Pain, Mild (Pain Scale 1-3) Clonidine HCl 0.1 mg 02/10/20 23:54 Clonidine Hcl 0.1 Mg Tablet PO TID PRN Withdrawal Protocol Docusate Sodium 100 mg 02/11/20 05:18 Docusate Sodium 100 Mg Capsule PO DAILY PRN Constipation Enoxaparin Sodium 40 mg 02/11/20 06:00 02/11/20 06:16 Enoxaparin Sodium 40 Mg/0.4 Ml Syringe SUBCUT 40 mg Q24H GUERA Administration Hydroxyzine HCl 25 mg 02/10/20 23:53 Hydroxyzine Hcl 25 Mg Tablet PO Q6H PRN anxiety/restlessness Nafcillin Sodium 2 gm/ Sodium 100 mls @ 200 mls/hr 02/11/20 02:00 02/11/20 14:53 Chloride IV Infused Q4H GUERA Infusion Ondansetron HCl 4 mg 02/11/20 05:18 Ondansetron Hcl 4 Mg/2 Ml Vial IVPUSH Q8H PRN Nausea and Vomiting Oxycodone HCl 5 mg 02/10/20 23:59 Oxycodone Hcl Immed Release 5 Mg Tablet PO Q6H PRN Pain, Severe (Pain Scale 7-10) Sodium Chloride 3 ml 02/11/20 05:18 02/11/20 15:40 0.9 % Sodium Chloride Flush 3 Ml Syringe IVFLUSH 3 ml QSHIFT [facility] Administration Labs CBC & Chem 7: 02/11/20 07:18 02/11/20 07:18 Assessment and Plan (1) MSSA bacteremia: Status: Acute (2) Vegetative endocarditis: Status: Acute (3) Opiate addiction: Status: Acute (4) Cocaine abuse: Status: Acute Assessment and Plan: 19-year-old transgender (female to male) who presents after leaving AMA from [facility] on 02/07 where he was being treated for sepsis 2/2 endocarditis, and MSSA bacteremia He returns today, wanting placement and starting abx Tricuspid valve endocarditis, MSSA bacteremia - blood cx from 02/03 -- / positive for MSSA, repeat from 02/06 neg @ 24 hours - blood cultures from 02/09 pending -continue nafcillin in 2 mg Q4hrs follow-up cultures Will get PICC line once cultures negative will need 6 weeks of antibiotic 2. Opiate use disorder denies withdrawal symptoms continue hydroxyzine as well as clonidine p.r.n. for withdrawal symptoms DVT prophylaxis: Lovenox
--- NOTE | 2020-02-11 19:41 | PC.NURSE ---
telemetry monitor recorded by LIZA,confirmed by MIKE Alejo RN
[2020-02-12] VITALS: BP 104/60; PULSE 104; RESP 16; TEMP 36.9; O2SAT 97
[2020-02-12] MEDS: Nafcillin Sodium 2 GM in 0.9 % Sodium Chloride 100 ML IV ×6 (02:10→21:45)
[2020-02-12] MEDS: 0.9 % Sodium Chloride Flush 3 ML SYRINGE IVFLUSH ×3 (02:19→14:02)
[2020-02-12 03:27] VITALS: BP 99/53; PULSE 103; RESP 16; TEMP 37.3; O2SAT 96
[2020-02-12] MEDS: oxyCODONE HCl Immed Release 5 MG TABLET PO ×3 (05:20→21:55)
[2020-02-12] MEDS: Acetaminophen 325 MG TABLET 650 MG PO (05:20)
[2020-02-12] MEDS: Enoxaparin Sodium 40 MG/0.4 ML SYRINGE SUBCUT (05:23)
[2020-02-12 07:39] VITALS: BP 104/61; PULSE 106; RESP 18; TEMP 37.6; O2SAT 99
[2020-02-12 12:00] VITALS: BP 107/64; PULSE 109; RESP 18; TEMP 36.9; O2SAT 95
--- NOTE | 2020-02-12 14:00 | MHC.CM.PN ---
JEEVAN LOW FOR IV ABX R/T ENDOCARDITIS. TRANSFER BLS
--- NOTE | 2020-02-12 15:12 | HO.PM.IMPN ---
Subjective Subjective Date of Service: 02/12/20 Interval History: Patient seen and examined at bedside patient reported some withdrawl symptoms Constitutional Constitutional: Reports no additional constitutional complaints, Denies body ache(s), Denies chills, Denies fever(s), Denies headache(s) and Reports weakness Eyes Eyes: Reports no additional eye complaints and Denies change in vision ENT Ears, Nose, Mouth, and Throat: Reports system reviewed and no additional complaints, except as documented, Denies dizziness, Denies headache(s), Denies nasal congestion, Denies nasal discharge and Denies neck pain Cardiovascular Cardiovascular: Reports no additional cardiovascular complaints, Denies chest pain, Denies leg edema and Denies dyspnea Respiratory Respiratory: Reports no additional respiratory complaints, Denies cough and Denies dyspnea Gastrointestinal Gastrointestinal: Reports no additional gastrointestinal complaints, Denies abdominal pain, Denies diarrhea, Denies nausea and Denies vomiting Musculoskeletal Musculoskeletal: Reports no additional musculoskeletal complaints, Denies back pain, Reports arthralgias, Denies joint swelling, Denies neck pain, Denies numbness and Denies tingling Integumentary/Breasts Skin/Breast: Reports no additional skin complaints and Denies rash Neurologic Neurologic: Reports system reviewed and no additional complaints, except as documented, Denies Abnormal speech present, Denies dizziness, Denies headache(s), Denies numbness, Denies tingling and Reports weakness Physical Exam Vital Signs: Vital Signs: Last Vital Signs Temp 98.5 F 02/12/20 12:00 Pulse 109 H 02/12/20 12:00 Resp 18 02/12/20 12:00 BP 107/64 02/12/20 12:00 Pulse Ox 95 02/12/20 12:00 Body Mass Index 18.1 Const: General: cooperative, healthy appearing, comfortable and no acute distress Orientation/consciousness: patient oriented x3 Limitations: no limitations HENMT: Head: Yes normal to inspection Ears: hearing grossly normal bilaterally General nose exam: Normal external nose present Face and sinus: Yes normal facial exam Mouth: Normal oral and palatal mucosa present Throat: Yes posterior oropharynx normal Eyes: General: appearance normal, both eyes and all related structures Pupils: Equal, round and reactive pupils present Neck: Neck: Yes normal visual inspection Chest: Chest palpation & inspection: normal inspection of the chest Resp: Effort & Inspection: normal respiratory effort and able to speak in complete sentences Auscultation: clear to auscultation bilaterally Cardio: Rate: regular rate Rhythm: regular rhythm Peripheral pulses: Peripheral pulses 2+ throughout GI: Inspection: Yes normal to inspection Palpation (GI): Soft to palpation and nontender Auscultation: normal bowel sounds Back/Spine/Pelvis: Thoracic/Lumbar Spine: thoracic and lumbar spine normal to inspection Skin: General skin exam: no rashes or lesions noted Neuro: General: patient oriented x3, no focal motor deficits and normal sensation to monofilament Cranial nerves: Yes Equal, round and reactive pupils present Cognition (Neuro): normal cognition Speech: No Abnormal speech present Gait exam (Neuro): Normal gait present Motor exam (neuro): 5/5 motor strength present throughout Extrem: General: Yes normal to inspection and Yes no pedal edema Objective Data Current Medications Generic Name Dose Route Start Last Admin Trade Name Freq PRN Reason Stop Dose Admin Acetaminophen 650 mg 02/11/20 05:18 02/12/20 05:20 Acetaminophen 325 Mg Tablet PO 650 mg Q6H PRN Administration Pain, Mild (Pain Scale 1-3) Clonidine HCl 0.1 mg 02/10/20 23:54 Clonidine Hcl 0.1 Mg Tablet PO TID PRN Withdrawal Protocol Docusate Sodium 100 mg 02/11/20 05:18 Docusate Sodium 100 Mg Capsule PO DAILY PRN Constipation Enoxaparin Sodium 40 mg 02/11/20 06:00 02/12/20 05:23 Enoxaparin Sodium 40 Mg/0.4 Ml Syringe SUBCUT 40 mg Q24H GUERA Administration Hydroxyzine HCl 25 mg 02/10/20 23:53 Hydroxyzine Hcl 25 Mg Tablet PO Q6H PRN anxiety/restlessness Nafcillin Sodium 2 gm/ Sodium 100 mls @ 200 mls/hr 02/11/20 02:00 02/12/20 14:01 Chloride IV 100 mls/hr Q4H GUERA Administration Lorazepam 0.5 mg 02/12/20 11:14 Lorazepam 2 Mg/Ml Vial IVPUSH Q4H PRN anxiety/restlessness Ondansetron HCl 4 mg 02/11/20 05:18 Ondansetron Hcl 4 Mg/2 Ml Vial IVPUSH Q8H PRN Nausea and Vomiting Oxycodone HCl 5 mg 02/10/20 23:59 02/12/20 14:41 Oxycodone Hcl Immed Release 5 Mg Tablet PO 5 mg Q6H PRN Administration Pain, Severe (Pain Scale 7-10) Sodium Chloride 3 ml 02/11/20 05:18 02/12/20 14:02 0.9 % Sodium Chloride Flush 3 Ml Syringe IVFLUSH 3 ml QSHIFT GUERA Administration Labs CBC & Chem 7: 02/11/20 07:18 02/11/20 07:18 Microbiology Microbiology Results: Microbiology 02/10/20 20:49 Blood - Venous Blood Culture - Preliminary No growth after 24 hours. 02/10/20 20:49 Blood - Venous Blood Culture - Preliminary No growth after 24 hours. Assessment and Plan (1) MSSA bacteremia: Status: Acute (2) Vegetative endocarditis: Status: Acute (3) Opiate addiction: Status: Acute (4) Cocaine abuse: Status: Acute Assessment and Plan: 19-year-old transgender (female to male) who presents after leaving AMA from [facility] on 02/07 where he was being treated for sepsis 2/2 endocarditis, and MSSA bacteremia He returns today, wanting placement and starting abx Sepsis secondary to endocarditis on admission Tricuspid valve endocarditis, MSSA bacteremia - blood cx from 02/03 -- 02/19 positive for MSSA, repeat from 02/06 neg @ 48 hours - blood cultures from 02/09 pending -continue nafcillin in 2 mg Q4hrs follow-up cultures Will get PICC line once cultures negative will need 6 weeks of antibiotic 2. Opiate use disorder reported some withjdrawl symptoms toady continue hydroxyzine as well as clonidine p.r.n. for withdrawal symptoms will start ativan patient wants to wait on starting suboxone DVT prophylaxis: Lovenox
[2020-02-12 15:18] VITALS: BP 110/67; PULSE 111; RESP 18; TEMP 37.1; O2SAT 98
--- NOTE | 2020-02-12 16:17 | PC.NURSE ---
Pt Mother called. Pt gave permission t give mother an update. Attempted to call pt's mother x 2 this shift at [phone]. Pt resting in bed. Ambulates to bathroom with steady gait. Pt occasionally tachy when in pain, medicated with prn oxycodone with good effect. Pt makes needs know.
[2020-02-12 19:12] VITALS: BP 119/67; PULSE 112; RESP 18; TEMP 37.3; O2SAT 95
[2020-02-12] MEDS: LORazepam 2 MG/ML VIAL 0.5 MG IVPUSH (21:55)
[2020-02-13] VITALS: BP 103/56; PULSE 112; RESP 18; TEMP 37.1; O2SAT 98
[2020-02-13] MEDS: 0.9 % Sodium Chloride Flush 3 ML SYRINGE IVFLUSH ×2 (01:02→09:21)
[2020-02-13] MEDS: Nafcillin Sodium 2 GM in 0.9 % Sodium Chloride 100 ML IV ×4 (01:47→13:36)
[2020-02-13 04:00] VITALS: BP 104/59; PULSE 104; RESP 18; TEMP 36.7; O2SAT 97
[2020-02-13 08:00] VITALS: BP 104/59; PULSE 106; RESP 18; TEMP 37; O2SAT 98
[2020-02-13 11:42] VITALS: BP 107/67; PULSE 110; RESP 18; TEMP 37.2; O2SAT 97
[2020-02-13 13:17] VITALS: BMI 18.1
[2020-02-13] MEDS: oxyCODONE HCl Immed Release 5 MG TABLET PO (13:35)
[2020-02-13] MEDS: LORazepam 2 MG/ML VIAL 0.5 MG IVPUSH (13:36)
[2020-02-13] MEDS: hydrOXYzine HCL 25 MG TABLET PO (14:08)
--- NOTE | 2020-02-13 15:23 | PC.NURSE ---
Pt rang call ayaz stating to take hi IV because he was leaving AMA. Message sent to doctor MD up to talk to pt and explain need to hospitalization/how serious his diagnosis was. Pt still stating he wanted to leave. IV removed, Monitor removed, Pt brought to security to grab belongings.
--- NOTE | 2020-02-13 18:38 | PM.DS ---
DS: Providers Provider Date of admission: 02/10/20 23:25 Primary care physician: None Physician DS: Diagnosis Discharge Diagnosis (1) MSSA bacteremia: Status: Acute (2) Vegetative endocarditis: Status: Acute (3) Opiate addiction: Status: Acute (4) Cocaine abuse: Status: Acute DS: Medications Discharge Medications Home Medications: Home Medications Medication Instructions Recorded Confirmed No Known Home Meds 02/04/20 02/10/20 DS: Summary Hospital Course Hospital Course: Patient was admitted was admitted due to endocarditis with MSSA bacteremia and was on IV antibiotics and was to get a PICC line on Saturday for 6 weeks of IV therapy. Patient decided to leave against medical advise and I was up in patient's room with RN and advise patient to stay as leaving against advise and not getting IV antiboitics will be harmful and potentially cause . Aparently patient's has done this before and patient indicated that she had to leave for personal reason and will return even as early as tonight. Again patient was advised not to do this and risk her health and potential worsening and even . Patient proceed to go and didn't want any additonal interventiol not even po Abx which is not proven to be effective against bacteremia and endocarditis. Time Spent with Patient Time attestation: Total time spent providing and/or coordinating discharge services: Physical Exam Vital Signs: Vital Signs: Last Vital Signs Temp 98.9 F 02/13/20 11:42 Pulse 110 H 02/13/20 11:42 Resp 18 02/13/20 11:42 BP 107/67 02/13/20 11:42 Pulse Ox 97 02/13/20 11:42 Body Mass Index 18.1 DS: Data Data Completed and Pending Labs on day of discharge: 02/10/20 19:55 ECG 12 lead EKG Stat EKG Documentation DIRECTED IV insert/maintain .Now 02/10/20 20:00 Nafcillin Sodium 2 gm 0.9 % Sodium Chloride [Ns] 100 ml IV ONCE 02/10/20 20:01 Case Management / [employer] Consult STAT 02/10/20 20:48 Basic Metabolic Panel Stat Complete Blood Count Auto Diff Stat Hold Lt Blue - Possible Coag Stat Lactic Acid Stat Troponin-I High Sensitivity Stat 02/10/20 20:51 COVID-19 ID NOW (Valentin) Stat 02/10/20 20:58 UA CC w/rflx Micro + Cult Stat 02/10/20 21:17 Nafcillin Sodium 2 gm IV .STK-MED ONE 02/10/20 23:22 Transfer Order Routine 02/10/20 23:23 Code Status Routine 02/10/20 23:53 hydrOXYzine HCL [Atarax] 25 mg PO Q6H PRN 02/10/20 23:54 cloNIDine HCL [Catapres] 0.1 mg PO TID PRN 02/10/20 23:59 oxyCODONE HCl Immed Release [Roxicodone] 5 mg PO Q6H PRN 02/11/20 00:00 Nafcillin Sodium 2 gm 0.9 % Sodium Chloride [Ns] 100 ml IV RQ4H 02/11/20 02:00 Nafcillin Sodium 2 gm 0.9 % Sodium Chloride [Ns] 100 ml IV Q4H 02/11/20 02:01 Nafcillin Sodium 2 gm IV .STK-MED ONE 02/11/20 05:18 0.9 % Sodium Chloride Flush [NS Flush] 3 ml IVFLUSH QSHIFT Acetaminophen [Tylenol] 650 mg PO Q6H PRN Docusate Sodium [Colace] 100 mg PO DAILY PRN ondansetron HCL [Zofran] 4 mg IVPUSH Q8H PRN 02/11/20 05:18 Ambulate QSHIFT WHILE AWAKE Cont. Telemetry w/Vital Sign limit Q4HR IV insert/maintain Q4HR Intake and Output Q8HR Pulse Oximetry Q4HR Vital Signs Q4HR 02/11/20 06:00 Enoxaparin Sodium [Lovenox] 40 mg SUBCUT Q24H 02/11/20 06:07 Nafcillin Sodium 2 gm IV .STK-MED ONE 02/11/20 07:18 Basic Metabolic Panel Routine Complete Blood Count Auto Diff Routine 02/11/20 Breakfast Regular Diet 02/11/20 10:13 Nafcillin Sodium 2 gm IV .STK-MED ONE 02/11/20 13:53 Nafcillin Sodium 2 gm IV .STK-MED ONE 02/11/20 18:54 Nafcillin Sodium 2 gm IV .STK-MED ONE 02/11/20 21:58 Nafcillin Sodium 2 gm IV .STK-MED ONE 02/12/20 01:51 Nafcillin Sodium 2 gm IV .STK-MED ONE 02/12/20 05:15 Nafcillin Sodium 2 gm IV .STK-MED ONE 02/12/20 10:16 Nafcillin Sodium 2 gm IV .STK-MED ONE 02/12/20 11:14 LORazepam [Ativan] 0.5 mg IVPUSH Q4H PRN 02/12/20 13:59 Nafcillin Sodium 2 gm IV .STK-MED ONE 02/12/20 18:06 Nafcillin Sodium 2 gm IV .STK-MED ONE 02/12/20 21:43 Nafcillin Sodium 2 gm IV .STK-MED ONE 02/13/20 01:43 Nafcillin Sodium 2 gm IV .STK-MED ONE 02/13/20 05:39 Nafcillin Sodium 2 gm IV .STK-MED ONE 02/13/20 09:18 Nafcillin Sodium 2 gm IV .STK-MED ONE 02/13/20 13:29 Nafcillin Sodium 2 gm IV .STK-MED ONE Laboratory Last Values WBC 10.7 X10*3/uL (4.8-10.8) 02/11/20 07:18 RBC 3.33 X10*6/uL (4.20-5.50) L 02/11/20 07:18 Hgb 10.4 g/dl (12.0-16.0) L 02/11/20 07:18 Hct 33.4 % (37-47) L 02/11/20 07:18 MCV 100.3 fL (80-98) H 02/11/20 07:18 MCH 31.2 pg (27.0-33.0) 02/11/20 07:18 MCHC 31.1 g/dl (31.0-35.0) 02/11/20 07:18 RDW 17.0 % (11.0-16.0) H 02/11/20 07:18 Plt Count 433 X10*3/uL (160-400) H 02/11/20 07:18 MPV 7.8 fL (9.4-12.3) L 02/11/20 07:18 Immature Gran % (Auto) 0.8 % (0.0-0.4) H 02/11/20 07:18 Neut % (Auto) 71.7 % (45-73) 02/11/20 07:18 Lymph % (Auto) 15.9 % (20-40) L 02/11/20 07:18 [place] % (Auto) 8.6 % (2-11) 02/11/20 07:18 Eos % (Auto) 2.6 % (0-4) 02/11/20 07:18 Baso % (Auto) 0.4 % (0-2) 02/11/20 07:18 Lymph # (Auto) 1.7 X10*3/uL (1.2-4.9) 02/11/20 07:18 [place] # (Auto) 0.9 X10*3/uL (0.1-1.2) 02/11/20 07:18 Eos # (Auto) 0.3 X10*3/uL (0.0-0.4) 02/11/20 07:18 Baso # (Auto) 0.0 X10*3/uL (0.0-0.2) 02/11/20 07:18 Abs Immat Gran (auto) 0.08 X10*3/uL (0.00-0.03) H 02/11/20 07:18 Absolute Neuts (auto) 7.7 X10*3/uL (2.0-8.3) 02/11/20 07:18 Absolute Nucleated RBC 0.000 X10*3/uL (0.0-0.012) 02/11/20 07:18 Nucleated RBC % (auto) 0.0 /100WBC (0.0-0.2) 02/11/20 07:18 Hold Blue Top SEE NOTE 02/10/20 20:48 Sodium 136 mmol/L (135-145) 02/11/20 07:18 Potassium 4.5 mmol/l (3.3-5.1) 02/11/20 07:18 Chloride 100 mmol/L (96-108) 02/11/20 07:18 Carbon Dioxide 28 mmol/L (22-29) 02/11/20 07:18 Anion Gap 13 (12-20) 02/11/20 07:18 BUN 9 mg/dL (9-16) 02/11/20 07:18 Creatinine 0.68 mg/dL (0.5-1.4) 02/11/20 07:18 Estim Creat Clear Calc 106.3 02/11/20 07:18 Estimated GFR > 60 02/11/20 07:18 Random Glucose 89 mg/dL (60-115) 02/11/20 07:18 Lactic Acid 1.0 mmol/L (0.5-2.0) 02/10/20 20:48 Calcium 8.6 mg/dL (8.4-10.2) 02/11/20 07:18 Troponin I High Sens < 3.5 ng/L (<3.5-17.0) 02/10/20 20:48 Urine Color YELLOW 02/10/20 20:58 Urine Appearance CLEAR 02/10/20 20:58 Urine pH 5.5 (5.0-8.0) 02/10/20 20:58 Ur Specific [place] >= 1.030 (1.005-1.025) H 02/10/20 20:58 Urine Protein NEG MG/DL (NEG-TRACE) 02/10/20 20:58 Urine Glucose (UA) NEG MG/DL (NEG) 02/10/20 20:58 Urine Ketones NEG MG/DL (NEG) 02/10/20 20:58 Urine Blood NEG (NEG) 02/10/20 20:58 Urine Nitrite NEG (NEG) 02/10/20 20:58 Ur Leukocyte Esterase NEG (NEG) 02/10/20 20:58 COVID-19 (WENDY) Negative (Negative) 02/10/20 20:51 COVID-19 Clin Com See Note 02/10/20 20:51 Preliminary micro results at discharge 02/10/20 20:49 Blood Culture - Preliminary Blood - Venous No growth after 48 hours. 02/10/20 20:49 Blood Culture - Preliminary Blood - Venous No growth after 48 hours. Discharge Plan Discharge Patient Disposition: Left Against Medical Advice Referrals: Isabell Lazaro MINER ASSISTANT [Nurse Practitioner] - 1 Week (Please call and schedule a follow up appointment within 1 week, office is closed due to [place] holiday.) Discharge Medications: No Action No Known Home Meds RF: 0 Discharge Orders: Discharge Order (Routine); Ordered 02/13/20 Ordered By: Stanislaw García Discharge Date/Time: 02/13/20 15:30 Care Plan Goals: Left AMA Health Concerns: Left AMA Plan of Treatment: Left AMA
== END 2020-02-13 15:30 | disposition left against medical advice (07) | DRG 872 ==
LOC: HO.ED 22:41 → HO.IMC 02-11 03:28
PROVIDERS: Nurse Practitioner Family; Admitting Provider Internal Medicine; Emergency Provider Emergency Medicine; Visit Provider Internal Medicine
DX: A41.9 Sepsis, unspecified organism (principal); I38 Endocarditis, valve unspecified; F11.20 Opioid dependence, uncomplicated; R78.81 Bacteremia; F14.10 Cocaine abuse, uncomplicated; F64.0 Transsexualism; F17.210 Nicotine dependence, cigarettes, uncomplicated; Z71.6 Tobacco abuse counseling; Z59.0 Homelessness; Z20.828 Contact with and (suspected) exposure to other viral communicable diseases
CPT/HCPCS: 36415; 80048; 81003; 83605; 84484; 85025; 87040; 87635; 93005; 96365; 96366; 99285; J1650; J2060

== ENCOUNTER 2020-02-21 01:48 | Inpatient (IN) | payer OTHER, SELFPAY ==
[2020-02-21] VITALS (8 sets, daily range): BP systolic 90–115; BP diastolic 33–66; PULSE 81–114; RESP 16–20; TEMP 35.9–37.9; O2SAT 95–99; BMI 18.6
--- NOTE | 2020-02-21 02:19 | ED.GENADULT ---
HPI - General Adult General Chief complaint: General Medical Stated complaint: BLOOD INFECTION Time Seen by Provider: 02/21/20 02:19 Source: patient Mode of arrival: ambulatory Limitations: no limitations History of Present Illness HPI narrative: Patient is 19 years old transgender female to male with history of IV drug abuse with diagnosis of tricuspid valve endocarditis and MSSA bacteremia which were diagnosed on 02/02 at [facility] since then he been to our hospital 2 times and left AMA was on 02/12 and went to [facility] and left AMA 2 days ago now comes here for IV antibiotics patient denies any fever at this time patient said he would like to stay in the hospital for PICC line and antibiotics treatment Related Data Home Medications Medication Instructions Recorded Confirmed No Known Home Meds 02/04/20 02/10/20 Allergies Allergy/AdvReac Type Severity Reaction Status Date / Time No Known Allergies Allergy Verified 02/10/20 19:44 [No Known Allergies*] Review of Systems Review of Systems: Constitutional : No Weight loss, off and on low-grade Fever, No Chills ENT/Mouth : No sore throat, No Rhinorrhea Eyes: No Eye Pain, No Swelling Cardiovascular : No Chest Pain, no palpitations Respiratory : No Cough, No Sputum, no shortness of breath Gastrointestinal : no Nausea, No Vomiting, No Diarrhea, No abdominal Pain, no black stools Genitourinary : No Dysuria, No Urinary Frequency Musculoskeletal : No joint pain, No Myalgias, No Joint Swelling Skin : No Skin Lesions, No rash Neuro : No Weakness, No Numbness, No Dizziness, No Headache Psych : No Anxiety/Panic, No Depression Heme/Lymph: No Bruising, No Lymphadenopathy Endocrine : No Polyuria, No Polydipsia All other systems reviewed and are negative PMFSH Past Medical History Medical History Cocaine abuse IV drug abuse MSSA bacteremia Opiate addiction Vegetative endocarditis Surgical History H/O mastectomy Family History Family History Other Adopted Social History Social History Household Members: Significant Other Housing: Homeless Alcohol intake: never Smoking Status: Current every day smoker Tobacco Type: Cigarette Packs Per Day: 0.5 Cigarettes Per Day: 10.0 Substance Use Type: Heroin Advance Directives: No Advance Directives Information Provided: No service: No Current occupational status: unemployed Physical Exam Vital Signs: Vital Signs: Last Vital Signs Temp 96.6 F L 02/21/20 02:00 Pulse 114 H 02/21/20 02:00 Resp 16 02/21/20 02:00 BP 115/59 L 02/21/20 02:00 Pulse Ox 97 02/21/20 02:00 Body Mass Index 18.6 Appearance: Alert. Oriented X3. No acute distress. Eyes: Pupils equal, round and reactive to light. ENT: Pharynx normal. Neck: Normal inspection. Neck supple. CVS: Normal heart rate and rhythm. Pulses normal. Respiratory: No respiratory distress. Breath sounds normal. Abdomen: Soft and nontender. Bowel sounds are present, no mass palpable, no CVA tenderness Skin: Skin warm and dry. Normal skin color. Normal skin turgor. Extremities: No lower extremity edema. IVDA track lópez present Neuro: Oriented X 3. No motor deficit. No sensory deficit. Medical Decision Making MDM Narrative Medical decision making narrative: Patient with history of MSSE bacteremia with endocarditis noncompliant to medications multiple times AMA comes here for further treatment for endocarditis will give him IV nafcillin admit for IV antibiotic treatment possible PICC line and assisted placement Lab Data Lab results reviewed: Yes I reviewed the patient's lab results. Result diagrams: 02/21/20 03:18 02/21/20 03:18 Labs: Lab Results 02/21/20 02/21/20 02/21/20 Range/Units 03:18 03:18 03:18 WBC 11.9 H (4.8-10.8) X10*3/uL RBC 3.33 L (4.20-5.50) X10*6/uL Hgb 10.3 L (12.0-16.0) g/dl Hct 31.9 L (37-47) % MCV 95.8 (80-98) fL MCH 30.9 (27.0-33.0) pg MCHC 32.3 (31.0-35.0) g/dl RDW 16.0 (11.0-16.0) % Plt Count 287 D (160-400) X10*3/uL MPV 7.7 L (9.4-12.3) fL Immature Gran % (Auto) 0.4 (0.0-0.4) % Neut % (Auto) 67.4 (45-73) % Lymph % (Auto) 21.0 (20-40) % [place] % (Auto) 6.9 (2-11) % Eos % (Auto) 3.9 (0-4) % Baso % (Auto) 0.4 (0-2) % Lymph # (Auto) 2.5 (1.2-4.9) X10*3/uL [place] # (Auto) 0.8 (0.1-1.2) X10*3/uL Eos # (Auto) 0.5 H (0.0-0.4) X10*3/uL Baso # (Auto) 0.1 (0.0-0.2) X10*3/uL Abs Immat Gran (auto) 0.05 H (0.00-0.03) X10*3/uL Absolute Neuts (auto) 8.0 (2.0-8.3) X10*3/uL Absolute Nucleated RBC 0.000 (0.0-0.012) X10*3/uL Nucleated RBC % (auto) 0.0 (0.0-0.2) /100WBC Sodium 137 (135-145) mmol/L Potassium 3.7 (3.3-5.1) mmol/l Chloride 97 (96-108) mmol/L Carbon Dioxide 30 H (22-29) mmol/L Anion Gap 14 (12-20) BUN 11 (9-16) mg/dL Creatinine 0.64 (0.5-1.4) mg/dL Estim Creat Clear Calc 115.4 Estimated GFR > 60 Random Glucose 104 (60-115) mg/dL Lactic Acid 1.4 (0.5-2.0) mmol/L Calcium 9.3 D (8.4-10.2) mg/dL Total Bilirubin 0.2 (0.0-1.0) mg/dL Direct Bilirubin 0.2 (0.0-0.5) mg/dL AST 12 D (5-31) U/L ALT 12 (0-31) U/L Alkaline Phosphatase 77 D (39-117) U/L Total Protein 7.7 (6.5-8.0) g/dL Albumin 3.9 D (3.5-5.0) g/dL Urine Opiates Screen (Not Detect) Ur Barbiturates Screen (Not Detect) Ur Phencyclidine Scrn (Not Detect) Ur Amphetamines Screen (Not Detect) U Benzodiazepines Scrn (Not Detect) Urine Cocaine Screen (Not Detect) U Marijuana (THC) Screen (Not Detect) COVID-19 (WENDY) (Negative) COVID-19 Clin Com 02/21/20 02/21/20 Range/Units 03:18 03:24 WBC (4.8-10.8) X10*3/uL RBC (4.20-5.50) X10*6/uL Hgb (12.0-16.0) g/dl Hct (37-47) % MCV (80-98) fL MCH (27.0-33.0) pg MCHC (31.0-35.0) g/dl RDW (11.0-16.0) % Plt Count (160-400) X10*3/uL MPV (9.4-12.3) fL Immature Gran % (Auto) (0.0-0.4) % Neut % (Auto) (45-73) % Lymph % (Auto) (20-40) % [place] % (Auto) (2-11) % Eos % (Auto) (0-4) % Baso % (Auto) (0-2) % Lymph # (Auto) (1.2-4.9) X10*3/uL [place] # (Auto) (0.1-1.2) X10*3/uL Eos # (Auto) (0.0-0.4) X10*3/uL Baso # (Auto) (0.0-0.2) X10*3/uL Abs Immat Gran (auto) (0.00-0.03) X10*3/uL Absolute Neuts (auto) (2.0-8.3) X10*3/uL Absolute Nucleated RBC (0.0-0.012) X10*3/uL Nucleated RBC % (auto) (0.0-0.2) /100WBC Sodium (135-145) mmol/L Potassium (3.3-5.1) mmol/l Chloride (96-108) mmol/L Carbon Dioxide (22-29) mmol/L Anion Gap (12-20) BUN (9-16) mg/dL Creatinine (0.5-1.4) mg/dL Estim Creat Clear Calc Estimated GFR Random Glucose (60-115) mg/dL Lactic Acid (0.5-2.0) mmol/L Calcium (8.4-10.2) mg/dL Total Bilirubin (0.0-1.0) mg/dL Direct Bilirubin (0.0-0.5) mg/dL AST (5-31) U/L ALT (0-31) U/L Alkaline Phosphatase (39-117) U/L Total Protein (6.5-8.0) g/dL Albumin (3.5-5.0) g/dL Urine Opiates Screen POSITIVE H (Not Detect) Ur Barbiturates Screen Not Detected (Not Detect) Ur Phencyclidine Scrn Not Detected (Not Detect) Ur Amphetamines Screen Not Detected (Not Detect) U Benzodiazepines Scrn Not Detected (Not Detect) Urine Cocaine Screen POSITIVE H (Not Detect) U Marijuana (THC) Screen Not Detected (Not Detect) COVID-19 (WENDY) Negative (Negative) COVID-19 Clin Com See Note ECG Data Attestation: I personally reviewed and interpreted this ECG as follows: Interpretation: Sinus tachycardia with heart rate of 104 normal intervals normal axis no acute ST T wave changes Discharge Plan Discharge Clinical Impression: Vegetative endocarditis Patient Disposition: Admitted As Inpatient
--- NOTE | 2020-02-21 02:32 | ECG_ITS ---
Test Reason : ENDOCARDITIS Blood Pressure : / mmHG Vent. Rate : 104 BPM Atrial Rate : 104 BPM P-R Int : 122 ms QRS Dur : 086 ms QT Int : 358 ms P-R-T Axes : 061 080 052 degrees QTc Int : 470 ms Sinus tachycardia Otherwise normal ECG When compared with ECG of 10-FEB-2020 20:37, No significant change was found Referred By: Vega Menard Electronically Signed By:DAPHNEY ALEXANDRE
--- NOTE | 2020-02-21 02:33 | XR_ITS ---
EXAMINATION: XR CHEST CLINICAL INFORMATION: Endocarditis COMPARISON: 02/14/2020 TECHNIQUE: Frontal view of the chest was obtained. FINDINGS: Hyperexpanded lungs. No consolidation, edema, or effusion. No pneumothorax. The cardiomediastinal silhouette is within normal limits. No osseous abnormality. XR/XR chest 1V IMPRESSION: Hyperexpanded, clear lungs.
[2020-02-21 03:26] LABS: MANUAL DIFF FLAG NO
[2020-02-21 03:32] LABS: Basophils Absolute Auto 0.1 X10*3/uL (0.0-0.2); Basophils Percent Auto 0.4 % (0-2); Eosinophils Absolute Auto 0.5 X10*3/uL (0.0-0.4); Eosinophils Percent Auto 3.9 % (0-4); Hematocrit 31.9 % (37-47); Hemoglobin 10.3 g/dl (12.0-16.0); Imm Gran Abs Auto 0.05 X10*3/uL (0.00-0.03); Imm Gran Pct Auto 0.4 % (0.0-0.4); Lymphocytes Absolute Auto 2.5 X10*3/uL (1.2-4.9); Mean Corpuscular HGB Conc 32.3 g/dl (31.0-35.0); Mean Corpuscular Hemoglobin 30.9 pg (27.0-33.0); Mean Corpuscular Volume 95.8 fL (80-98); Mean Platelet Volume 7.7 fL (9.4-12.3); Monocytes Absolute Auto 0.8 X10*3/uL (0.1-1.2); Monocytes Percent Auto 6.9 % (2-11); Neutrophils Percent Auto 67.4 % (45-73); Platelet Count 287 X10*3/uL (160-400); Red Blood Count 3.33 X10*6/uL (4.20-5.50); White Blood Count 11.9 X10*3/uL (4.8-10.8)
[2020-02-21 03:50] LABS: Lactic Acid 1.4 mmol/L (0.5-2.0)
[2020-02-21 03:56] LABS: Amphetamine Screen Urine Not Detected (Not Detect); Barbiturates, Urine Not Detected (Not Detect); Benzodiazepines Screen Urine Not Detected (Not Detect); Cannabinoid Screen Urine Not Detected (Not Detect); Cocaine Screen Urine POSITIVE (Not Detect); Opiate Screen Urine POSITIVE (Not Detect); Phencyclidine Screen Urine Not Detected (Not Detect)
[2020-02-21 03:56] LABS: Blood Urea Nitrogen 11 mg/dL (9-16); COVID-19 Test Negative (Negative); Calcium 9.3 mg/dL (8.4-10.2); Creatinine Clr Calc Pharmacy 115.4; Estimated Glomerular Filt Rate > 60; Glucose Random 104 mg/dL (60-115); IDNOW Serial# 9DD0AD1C
[2020-02-21] MEDS: Nafcillin Sodium 2 GM in 0.9 % Sodium Chloride 100 ML IV ×5 (03:57→21:53)
[2020-02-21 04:02] LABS: Anion Gap 14 (12-20); Carbon Dioxide 30 mmol/L (22-29); Chloride 97 mmol/L (96-108); Potassium 3.7 mmol/l (3.3-5.1); Sodium 137 mmol/L (135-145)
[2020-02-21 04:22] LABS: Alanine Aminotransferase 12 U/L (0-31); Albumin Level 3.9 g/dL (3.5-5.0); Alkaline Phosphatase 77 U/L (39-117); Aspartate Amino Transferase 12 U/L (5-31); Bilirubin Direct 0.2 mg/dL (0.0-0.5); Bilirubin Total 0.2 mg/dL (0.0-1.0); Total Protein 7.7 g/dL (6.5-8.0)
--- NOTE | 2020-02-21 05:23 | PM.IMHP ---
History of Present Illness Date of Service: 02/21/20 Chief Complaint: Bacteremia This is a 19 year old transgender female to Male with history of IV drug abuse who presents due to endocarditis. Patient has been readmitted multiple times within the last 1 month both here and at [facility] for endocarditis but he ends of leaving AMA each time. Last time he left AMA on 02/12 and reports that it was due to mental health. He initially left AMA from [facility] on 02/03/2020 where he was being treated for tricuspid valve endocarditis and MSSA bacteremia. Came to [facility] on 02/03, because he wanted to be treated locally but then left [employer] on 02/07 to be with his gf for 1 last night before going to [place] for IV abx. Pt was being treated w Naficilin and awaiting PICC placement before going to accepting facility but left AMA, returned again on the and was admitted on 02/12 but left AMA at that time. He returns now requesting to be treated for his endocarditis. Denies any recent changes to his health. A understands that if he does not receive treatment for his endocarditis he can end up dying from bacteremia. I emphasized the importance of continuing with treatment. he retruns today, stating ready to start 6 wks of IV treatment. He denies any fever, chills, denies any SOB, headache, change in vision, cough, sputum production, abdominal pain nausea or vomiting, no urinary symptoms and no lower extremity edema. Vitals are significant for temperature of 96.6?, heart rate of 114, respiratory rate of 16, blood pressure of 115/59, satting 97% on room air. Labs are significant for WBC count of 11.9, hemoglobin of 10.3, hematocrit 31.9, sodium of 137, potassium 3.7, BUN of 11, creatinine of 0.64, UDS positive for opioids and cocaine, COVID negative Past medical history: IV drug abuse, cocaine abuse, endocarditis, MSSA bacteremia, embolic PE Past surgical history: Mastectomy Family history: It does not know his adopted Social history: Currently homeless, smokes sometimes, drinks socially, uses both cocaine and heroin daily Review of Systems Review of Systems: Yes all other systems are reviewed and are negative [facility] Medical History Cocaine abuse IV drug abuse MSSA bacteremia Opiate addiction Vegetative endocarditis Family History Other Adopted Surgical History H/O mastectomy Social History Household Members: Significant Other Housing: Homeless Alcohol intake: never Smoking Status: Current every day smoker Tobacco Type: Cigarette Packs Per Day: 0.5 Cigarettes Per Day: 10.0 Substance Use Type: Heroin Advance Directives: No Advance Directives Information Provided: No service: No Current occupational status: unemployed Meds Allergies Allergy/AdvReac Type Severity Reaction Status Date / Time No Known Allergies Allergy Verified 02/10/20 19:44 [No Known Allergies*] Home Medications Medication Instructions Recorded Confirmed Type No Known Home Meds 02/04/20 02/10/20 History Physical Exam Vital Signs and Narrative: Vital Signs: Last Vital Signs Temp 96.6 F L 02/21/20 02:00 Pulse 114 H 02/21/20 02:00 Resp 16 02/21/20 02:00 BP 115/59 L 02/21/20 02:00 Pulse Ox 97 02/21/20 02:00 Body Mass Index 18.6 Const: General: cooperative and no acute distress Orientation/consciousness: patient oriented x3 Eyes: General: appearance normal, both eyes and all related structures Resp: Effort & Inspection: normal respiratory effort and able to speak in complete sentences Cardio: Rate: regular rate Rhythm: regular rhythm GI: Palpation (GI): Soft to palpation Auscultation: normal bowel sounds Skin: General skin exam: no rashes or lesions noted Neuro: General: patient oriented x3 Cognition (Neuro): normal cognition Extrem: General: Yes normal to inspection and Yes no pedal edema Results Labs CBC and Chem 7: 02/21/20 03:18 02/21/20 03:18 Labs: Laboratory Results - last 24 hr 02/21/20 02/21/20 02/21/20 03:18 03:18 03:18 MCV 95.8 MCH 30.9 MCHC 32.3 RDW 16.0 Plt Count 287 D MPV 7.7 L Immature Gran % (Auto) 0.4 Neut % (Auto) 67.4 Lymph % (Auto) 21.0 [place] % (Auto) 6.9 Eos % (Auto) 3.9 Baso % (Auto) 0.4 Lymph # (Auto) 2.5 [place] # (Auto) 0.8 Eos # (Auto) 0.5 H Baso # (Auto) 0.1 Abs Immat Gran (auto) 0.05 H Absolute Neuts (auto) 8.0 Absolute Nucleated RBC 0.000 Nucleated RBC % (auto) 0.0 Anion Gap 14 Estim Creat Clear Calc 115.4 Estimated GFR > 60 Random Glucose 104 Lactic Acid 1.4 Calcium 9.3 D Total Bilirubin 0.2 Direct Bilirubin 0.2 AST 12 D ALT 12 Alkaline Phosphatase 77 D Total Protein 7.7 Albumin 3.9 D Urine Opiates Screen Ur Barbiturates Screen Ur Phencyclidine Scrn Ur Amphetamines Screen U Benzodiazepines Scrn Urine Cocaine Screen U Marijuana (THC) Screen COVID-19 (WENDY) COVID-Acreations [employer]iles [employer]otics 02/21/20 02/21/20 03:18 03:24 MCV MCH MCHC RDW Plt Count MPV Immature Gran % (Auto) Neut % (Auto) Lymph % (Auto) [place] % (Auto) Eos % (Auto) Baso % (Auto) Lymph # (Auto) [place] # (Auto) Eos # (Auto) Baso # (Auto) Abs Immat Gran (auto) Absolute Neuts (auto) Absolute Nucleated RBC Nucleated RBC % (auto) Anion Gap Estim Creat Clear Calc Estimated GFR Random Glucose Lactic Acid Calcium Total Bilirubin Direct Bilirubin AST ALT Alkaline Phosphatase Total Protein Albumin Urine Opiates Screen POSITIVE H Ur Barbiturates Screen Not Detected Ur Phencyclidine Scrn Not Detected Ur Amphetamines Screen Not Detected U Benzodiazepines Scrn Not Detected Urine Cocaine Screen POSITIVE H U Marijuana (THC) Screen Not Detected COVID-19 (WENDY) Negative COVID-19 [employer]ventions See Note Imaging Radiologist's Impressions: Impressions Chest X-Ray 02/21/20 02:33 IMPRESSION: Hyperexpanded, clear lungs. Assessment and Plan (1) Sepsis: Qualifiers: Sepsis acute organ dysfunction status: without acute organ dysfunction Sepsis type: methicillin susceptible Staphylococcus aureus Qualified Code(s): A41.01 - Sepsis due to Methicillin susceptible Staphylococcus aureus Status: Acute (2) Vegetative endocarditis: Status: Acute (3) MSSA bacteremia: Status: Acute (4) Opiate addiction: Qualifiers: Substance use status: uncomplicated Qualified Code(s): F11.20 - Opioid dependence, uncomplicated Status: Acute (5) Cocaine abuse: Status: Acute 19-year-old transgender male who presents to the hospital for treatment of MSSA endocarditis. 1.tricuspid valve endocarditis, MSSA bacteremia - blood cx from 02/03 -- 02/19 positive for MSSA, repeat from 02/06 neg @ 24 hours, repeat cultures from the negative - continue nafcillin 2 mg q.4 hours - cultures collected in the ED will follow - patient is willing to stay this time and will need placement for IV antibiotics - IR consult for PICC line 2. polysubstance abuse - uses opioids and cocaine - denies withdrawal symptoms - Will start him on hydroxyzine as well as clonidine p.r.n. for withdrawal symptoms DVT prophylaxis: Lovenox
--- NOTE | 2020-02-21 07:24 | PC.NURSE ---
PT HAS BEEN AMBULATORY TO BATHROOM X2 OVERNIGHT WITH STEADY GAIT. PT AWAKE AND ALERT, ANSWERING ALL QUESTIONS APPROPRIATELY AND IN NO DISTRESS OR COMPLAINT OF PAIN. PT HAS LIMITED PERIPHERAL ACCESS, BUT ABLE TO SECERE IV IN RIGHT FOREARM AND DRAW LABS FROM UNDERSIDE OF LEFT LOWER ARM. PT BROUGHT CHIPS AND SODA OF HIS OWN, NO NAUSEA OR VOMITING. PT PREFERS TO BE CALLED BY HIS NAME Asa.
--- NOTE | 2020-02-21 07:38 | PC.NURSE ---
called med/surg but nobody answered the phone
--- NOTE | 2020-02-21 08:19 | PC.NURSE ---
report given to med/operating room surgical technologist
--- NOTE | 2020-02-21 09:32 | P.EN_ITS ---
Event Note Date of Service: 02/21/20 Event Note: Seen and examined. Patient comes back for MSSA bacteremia/endocard itis. Patient has the habit of singning out AMA all the time before discharge to facility. Continue Nafcillin and case management to find placement, that is, if patient doesn't sing out yet again
[2020-02-21] MEDS: Acetaminophen 325 MG TABLET 650 MG PO (09:53)
[2020-02-21] MEDS: Enoxaparin Sodium 40 MG/0.4 ML SYRINGE SUBCUT (09:54)
[2020-02-21] MEDS: ondansetron HCL 4 MG/2 ML VIAL IVPUSH (09:54)
[2020-02-21] MEDS: 0.9 % Sodium Chloride Flush 3 ML SYRINGE IVFLUSH ×3 (09:55→23:59)
--- NOTE | 2020-02-21 11:10 | MHC.CARE ---
Pt prefers male pronouns and will be addressed by such throughout notes. CARE team received a consult for pt due to heroin and cocaine use. Pt has had multiple admissions due to chronic use. I met with pt, learned that pt had just recently transitioned to floor.Pt reports he is feeling very ill, states he will be open to discussing resources once feeling more stable. He requests CARE to return at a later time.
--- NOTE | 2020-02-21 11:19 | MHC.CM.PN ---
Addendum entered by Deepa Burgos 02/21/20 13:11: NURSE MOLD BURNER NOTE PATIENT MET WITH KAMARI FROM THE CARES TEAM , AND patient WANTS Treatment ie suboxone , informed hospitalist and requested consult for angel thornton for substance abuse medication (suboxone )management Original Note: nurse laboratory animal care veterinarian note electronic medical record reviewed along with case discussed with staff nurse , met with patient and explained my role as nurse laboratory animal care veterinarian t him , also discussed his substance abuse and history of leaving against medical advice, he reported he leaves because he starts to with drawl and leaves more more drugs. he how ever now has a better understand of how serious and life threatening his endocarditis is , he reported he does not want to and is seeking help i discussed the cares team with him and he was in agreement . he reported he is homeless but at times stays over night at friends, discharge plan to be further determined 1. homeless and substance abuse referral to cares team recommendations to follow 2. no pcp- c physicians list given to him 3 patien at t this time is willing to stay for course of treatment for his endcarditis
[2020-02-22] MEDS: Nafcillin Sodium 2 GM in 0.9 % Sodium Chloride 100 ML IV ×4 (02:53→17:14)
[2020-02-22 04:00] VITALS: RESP 18
[2020-02-22 04:51] LABS: MANUAL DIFF FLAG NO
[2020-02-22 04:52] LABS: Basophils Absolute Auto 0.1 X10*3/uL (0.0-0.2); Basophils Percent Auto 0.6 % (0-2); Eosinophils Absolute Auto 0.4 X10*3/uL (0.0-0.4); Eosinophils Percent Auto 4.7 % (0-4); Hematocrit 33.8 % (37-47); Hemoglobin 10.8 g/dl (12.0-16.0); Imm Gran Abs Auto 0.03 X10*3/uL (0.00-0.03); Imm Gran Pct Auto 0.4 % (0.0-0.4); Lymphocytes Absolute Auto 1.9 X10*3/uL (1.2-4.9); Mean Corpuscular Hemoglobin 30.6 pg (27.0-33.0); Mean Corpuscular Volume 95.8 fL (80-98); Mean Platelet Volume 7.9 fL (9.4-12.3); Monocytes Absolute Auto 0.7 X10*3/uL (0.1-1.2); Monocytes Percent Auto 7.8 % (2-11); Neutrophils Absolute Auto 5.3 X10*3/uL (2.0-8.3); Neutrophils Percent Auto 63.5 % (45-73); Platelet Count 237 X10*3/uL (160-400); Red Blood Count 3.53 X10*6/uL (4.20-5.50); Red Cell Distribution Width 16.1 % (11.0-16.0); White Blood Count 8.3 X10*3/uL (4.8-10.8)
[2020-02-22 05:21] LABS: Anion Gap 10 (12-20); Blood Urea Nitrogen 8 mg/dL (9-16); Calcium 8.6 mg/dL (8.4-10.2); Carbon Dioxide 31 mmol/L (22-29); Chloride 99 mmol/L (96-108); Creatinine Clr Calc Pharmacy 119.2; Estimated Glomerular Filt Rate > 60; Glucose Random 111 mg/dL (60-115); Potassium 4.1 mmol/l (3.3-5.1); Sodium 136 mmol/L (135-145)
[2020-02-22 07:10] VITALS: BP 97/51; PULSE 98; RESP 18; TEMP 36.9; O2SAT 97
[2020-02-22] MEDS: 0.9 % Sodium Chloride Flush 3 ML SYRINGE IVFLUSH ×2 (07:28→17:14)
--- NOTE | 2020-02-22 10:37 | MHC.RECOVSUP ---
Recovery Support note: Patient is a 19 year old Hungarian speaking Female to Male transgender patient who is known to this medical underwriter from previous consultations. This medical underwriter met with patient in [phone] to discuss recover supports and treatment options. Patient is currently here due to endocarditis with a plan for fpc antibiotics. Patient has a history of leaving AMA. Discussed how we could help make patient more comfortable and keep him in treatment. Patient reports a desire to get started on Methadone, reporting that it works better for him than Suboxone. Explained to patient that being on Methadone will severely limit his placement options and that it would likely be a barrier to treatment and patient acknowledged. Patient is willing to get started on Suboxone. Patient had concerns regarding precipitated withdrawal. Patient has been in the hospital since the morning of 02/21/20 and reports that he has not used since he got here and he does not have any heroin in the room. Discussed case with patient's RN, CM and Hospitalist. Plan for patient to get started on Suboxone. This medical underwriter will follow up with patient tomorrow.
--- NOTE | 2020-02-22 10:58 | HO.PM.IMPN ---
Subjective Subjective Date of Service: 02/22/20 Interval History: seen in f/u for endocarditis. No fever, no fever, no sob. He has left AMA on multiple occasion for this diagnosis Review of Systems Gen: no fever Resp: no sob, no cough CV: no chest, no KEITH, no leg edema GI: No n/v, no abd pain Neuro: No confusion Physical Exam Vital Signs: Vital Signs: Last Vital Signs Temp 98.4 F 02/22/20 07:10 Pulse 98 02/22/20 07:10 Resp 18 02/22/20 07:10 BP 97/51 L 02/22/20 07:10 Pulse Ox 97 02/22/20 07:10 Body Mass Index 18.6 Const: General: cooperative and no acute distress Orientation/consciousness: patient oriented x3 Resp: Effort & Inspection: normal respiratory effort and able to speak in complete sentences Cardio: Rate: regular rate Rhythm: regular rhythm GI: Palpation (GI): Soft to palpation Auscultation: normal bowel sounds Skin: General skin exam: no rashes or lesions noted Neuro: General: patient oriented x3 Objective Data Current Medications Generic Name Dose Route Start Last Admin Trade Name Freq PRN Reason Stop Dose Admin Acetaminophen 650 mg 02/21/20 09:31 02/21/20 09:53 Acetaminophen 325 Mg Tablet PO 650 mg Q6H PRN Administration Pain, Mild (Pain Scale 1-3) Docusate Sodium 100 mg 02/21/20 09:31 Docusate Sodium 100 Mg Capsule PO DAILY PRN Constipation Enoxaparin Sodium 40 mg 02/21/20 10:00 02/21/20 09:54 Enoxaparin Sodium 40 Mg/0.4 Ml Syringe SUBCUT 40 mg Q24H GUERA Administration Nafcillin Sodium 2 gm/ Sodium 100 mls @ 200 mls/hr 02/21/20 10:00 02/22/20 07:29 Chloride IV Infused Q4H GUERA Infusion Ondansetron HCl 4 mg 02/21/20 09:31 02/21/20 09:54 Ondansetron Hcl 4 Mg/2 Ml Vial IVPUSH 4 mg Q8H PRN Administration Nausea and Vomiting Sodium Chloride 3 ml 02/21/20 09:31 02/22/20 07:28 0.9 % Sodium Chloride Flush 3 Ml Syringe IVFLUSH 3 ml QSHIFT GUERA Administration Labs CBC & Chem 7: 02/22/20 04:29 02/22/20 04:29 Microbiology Microbiology Results: Microbiology 02/21/20 03:23 Blood - Venous Blood Culture - Preliminary 02/21/20 03:23 Blood - Venous Blood Culture - Preliminary Assessment and Plan (1) Sepsis: Status: Acute (2) Vegetative endocarditis: Status: Acute (3) MSSA bacteremia: Status: Acute (4) Opiate addiction: Status: Acute (5) Cocaine abuse: Status: Acute Assessment and Plan: 19-year-old transgender male who presents to the hospital for treatment of MSSA endocarditis. 1.tricuspid valve endocarditis, MSSA bacteremia - blood cx from 02/03 -- 02/19 positive for MSSA, repeat from 02/06 neg @ 24 hours, repeat cultures from the negative. Has left AMA recently - continue nafcillin 2 mg q.4 hours - cultures collected in the ED will follow - patient is willing to stay this time and will need placement for IV antibiotics - IR consult for PICC line--Will discuss with ID again 2. polysubstance abuse - uses opioids and cocaine - denies withdrawal symptoms -start Suboxone, addidction consult - Will start him on hydroxyzine as well as clonidine p.r.n. for withdrawal symptoms DVT prophylaxis: Lovenox
[2020-02-22 11:03] VITALS: BP 93/53; PULSE 99; RESP 18; TEMP 37; O2SAT 99
[2020-02-22 15:44] VITALS: BMI 18.6
[2020-02-22 17:12] VITALS: BP 119/70; PULSE 108; RESP 18; TEMP 36.7; O2SAT 97
[2020-02-22 17:14] VITALS: BP 119/70; PULSE 108
[2020-02-22] MEDS: cloNIDine HCL 0.1 MG TABLET PO (17:14)
[2020-02-22] MEDS: LORazepam 1 MG TABLET PO (18:00)
--- NOTE | 2020-02-22 19:00 | P.DS_ITS ---
DS: Providers Provider Date of Service: 03/30/20 Date of admission: 02/21/20 05:21 Primary care physician: Isabell Lazaro NP Consults: 02/21/20 08:57 Consult to Care Team Routine Comment: Reason for consultation: multiple admit/endocarditis at [facility] ,left ama 02/12 iv heroin.cocaine DS: Diagnosis Discharge Diagnosis (1) Sepsis: Status: Acute (2) Vegetative endocarditis: Status: Acute (3) MSSA bacteremia: Status: Acute (4) Opiate addiction: Status: Acute (5) Cocaine abuse: Status: Acute DS: Medications Discharge Medications Home Medications: Home Medications Medication Instructions Recorded Confirmed No Known Home Meds 02/04/20 02/10/20 DS: Summary Hospital Course Hospital Course: Chief Complaint: Bacteremia This is a 19 year old transgender female to Male with history of IV drug abuse who presents due to endocarditis. Patient has been readmitted multiple times within the last 1 month both here and at [facility] for endocarditis but he ends of leaving AMA each time. Last time he left AMA on 02/12 and reports that it was due to mental health. He initially left AMA from [facility] on 02/03/2020 where he was being treated for tricuspid valve endocarditis and MSSA bacteremia. Came to [facility] on 02/03, because he wanted to be treated locally but then left [facility] on 02/07 to be with his gf for 1 last night before going to [place] for IV abx. Pt was being treated w Naficilin and awaiting PICC placement before going to accepting facility but left AMA, returned again on the and was admitted on 02/12 but left AMA at that time. He returns now requesting to be treated for his endocarditis. Denies any recent changes to his health. A understands that if he does not receive treatment for his endocarditis he can end up dying from bacteremia. I emphasized the importance of continuing with treatment. he retruns today, stating ready to start 6 wks of IV treatment. He denies any fever, chills, denies any SOB, headache, change in vision, cough, sputum production, abdominal pain nausea or vomiting, no urinary symptoms and no lower extremity edema. Vitals are significant for temperature of 96.6?, heart rate of 114, respiratory rate of 16, blood pressure of 115/59, satting 97% on room air. Labs are significant for WBC count of 11.9, hemoglobin of 10.3, hematocrit 31.9, sodium of 137, potassium 3.7, BUN of 11, creatinine of 0.64, UDS positive for opioids and cocaine, COVID negative Hospital course: This is a patient with IVDA who is known to have infective endocarditis who has been admitted on multiple occasions and leaves AMA all the times. She was admitted yet again and put on IV antibiotics with hopes that she maybe discharge with PICC line for long term antiboitics. I was told the next day that she has left AMA yet again. At every encounter, we discussed the need to stay in the hospital for proper treatment and that leaving can make condition worse and even . Unfortunately patient still left after hours Date of service: 02/22/20--AMA discharge Time Spent with Patient Time attestation: Total time spent providing and/or coordinating discharge services: Discharge coordination time: Greater than 30 minutes Physical Exam Vital Signs: Vital Signs: Last Vital Signs Temp 98.1 F 02/22/20 17:12 Pulse 108 H 02/22/20 17:14 Resp 18 02/22/20 17:12 BP 119/70 02/22/20 17:14 Pulse Ox 97 02/22/20 17:12 Body Mass Index 18.6 DS: Data Data Completed and Pending Completed studies during hospitalization [Text1]: Procedures Insertion of Infusion Device into Left External Jugular Vein, Percutaneous Approach (02/10/20) Labs on day of discharge: Laboratory Tests 02/21/20 02/21/20 02/21/20 03:18 03:18 03:18 WBC 11.9 H RBC 3.33 L Hgb 10.3 L Hct 31.9 L MCV 95.8 MCH 30.9 MCHC 32.3 RDW 16.0 Plt Count 287 D MPV 7.7 L Immature Gran % (Auto) 0.4 Neut % (Auto) 67.4 Lymph % (Auto) 21.0 [place] % (Auto) 6.9 Eos % (Auto) 3.9 Baso % (Auto) 0.4 Lymph # (Auto) 2.5 [place] # (Auto) 0.8 Eos # (Auto) 0.5 H Baso # (Auto) 0.1 Abs Immat Gran (auto) 0.05 H Absolute Neuts (auto) 8.0 Absolute Nucleated RBC 0.000 Nucleated RBC % (auto) 0.0 Sodium 137 Potassium 3.7 Chloride 97 Carbon Dioxide 30 H Anion Gap 14 BUN 11 Creatinine 0.64 Estim Creat Clear Calc 115.4 Estimated GFR > 60 Random Glucose 104 Lactic Acid 1.4 Calcium 9.3 D Total Bilirubin 0.2 Direct Bilirubin 0.2 AST 12 D ALT 12 Alkaline Phosphatase 77 D Total Protein 7.7 Albumin 3.9 D Urine Opiates Screen Ur Barbiturates Screen Ur Phencyclidine Scrn Ur Amphetamines Screen U Benzodiazepines Scrn Urine Cocaine Screen U Marijuana (THC) Screen COVID-19 (WENDY) COVID-[employer] 02/21/20 02/21/20 02/22/20 03:18 03:24 04:29 WBC 8.3 RBC 3.53 L Hgb 10.8 L Hct 33.8 L MCV 95.8 MCH 30.6 MCHC 32.0 RDW 16.1 H Plt Count 237 MPV 7.9 L Immature Gran % (Auto) 0.4 Neut % (Auto) 63.5 Lymph % (Auto) 23.0 [place] % (Auto) 7.8 Eos % (Auto) 4.7 H Baso % (Auto) 0.6 Lymph # (Auto) 1.9 [place] # (Auto) 0.7 Eos # (Auto) 0.4 Baso # (Auto) 0.1 Abs Immat Gran (auto) 0.03 Absolute Neuts (auto) 5.3 Absolute Nucleated RBC 0.000 Nucleated RBC % (auto) 0.0 Sodium Potassium Chloride Carbon Dioxide Anion Gap BUN Creatinine Estim Creat Clear Calc Estimated GFR Random Glucose Lactic Acid Calcium Total Bilirubin Direct Bilirubin AST ALT Alkaline Phosphatase Total Protein Albumin Urine Opiates Screen POSITIVE H Ur Barbiturates Screen Not Detected Ur Phencyclidine Scrn Not Detected Ur Amphetamines Screen Not Detected U Benzodiazepines Scrn Not Detected Urine Cocaine Screen POSITIVE H U Marijuana (THC) Screen Not Detected COVID-19 (WENDY) Negative COVID-19 [employer] See Note 02/22/20 04:29 WBC RBC Hgb Hct MCV MCH MCHC RDW Plt Count MPV Immature Gran % (Auto) Neut % (Auto) Lymph % (Auto) [place] % (Auto) Eos % (Auto) Baso % (Auto) Lymph # (Auto) [place] # (Auto) Eos # (Auto) Baso # (Auto) Abs Immat Gran (auto) Absolute Neuts (auto) Absolute Nucleated RBC Nucleated RBC % (auto) Sodium 136 Potassium 4.1 Chloride 99 Carbon Dioxide 31 H Anion Gap 10 L BUN 8 L Creatinine 0.62 Estim Creat Clear Calc 119.2 Estimated GFR > 60 Random Glucose 111 Lactic Acid Calcium 8.6 D Total Bilirubin Direct Bilirubin AST ALT Alkaline Phosphatase Total Protein Albumin Urine Opiates Screen Ur Barbiturates Screen Ur Phencyclidine Scrn Ur Amphetamines Screen U Benzodiazepines Scrn Urine Cocaine Screen U Marijuana (THC) Screen COVID-19 (WENDY) COVID-19 Clin Com Discharge Plan Discharge Anticipated Discharge Date/Time: 02/22/20 19:00 Patient Disposition: Left Against Medical Advice Referrals: Isabell Lazaro CUSTOMER RESOURCE SPECIALIST [Primary Care Provider] - 1 Week (Please call and schedule a follow up appointment within 1 week.) Discharge Medications: No Action No Known Home Meds RF: 0 Discharge Orders: Discharge Order (Routine); Ordered 03/30/20 Ordered By: Stanislaw García Care Plan Goals: Left AMA Health Concerns: Akshatft AMChristel Plan of Treatment: Left AMA Discharge Date/Time: 02/22/20 20:00
--- NOTE | 2020-02-23 06:48 | PC.NURSE ---
LATE ENTRY NOTE FOR 02/22/2020 AT 1900 PATIENT STATES HE WANTS TO LEAVE [facility]. WHEN ASKED WHY PATIENT STATES I TOOK HEROIN WHILE I WAS HERE AND CAN'T START THE SUBOXONE. I WANT TO GO TO [facility] AND START METHADONE . NOTIFIED DOCTOR SUGAR AND CASE MANAGEMENT. PATIENT AGREED TO STAY. NEW ORDERS FOR CLONIDINE AND ATIVAN FOR WITHDRAWAL. PATIENT GIVEN CLONIDINE AT 1718, PATIENT STATED HAD LITTLE EFFECT. GIVEN ATIVAN AT 1800. PATIENT STATES NO EFFECT. CALLED SECURITY TO CHECK PATIENT'S ROOM, SECURITY CAME UP AND THEY STATES NOTHING WAS FOUND. PATIENT RESTING IN BED AT 1845 WITH CALL BOCANEGRA IN REACH.
== END 2020-02-22 20:00 | disposition left against medical advice (07) | DRG 871 ==
LOC: HO.ED 04:48 → HO.S3 06:03
PROVIDERS: Admitting Provider Internal Medicine; Emergency Provider Internal Medicine; PCP Nurse Practitioner Family; Visit Provider Internal Medicine
DX: A41.01 Sepsis due to Methicillin susceptible Staphylococcus aureus (principal); I33.0 Acute and subacute infective endocarditis; F11.20 Opioid dependence, uncomplicated; F17.210 Nicotine dependence, cigarettes, uncomplicated; Z71.6 Tobacco abuse counseling; Z20.828 Contact with and (suspected) exposure to other viral communicable diseases; F64.0 Transsexualism; B95.61 Methicillin susceptible Staphylococcus aureus infection as the cause of diseases classified elsewhere; Z91.14 Patient's other noncompliance with medication regimen; Z59.0 Homelessness
CPT/HCPCS: 36415; 71045; 80048; 80076; 80307; 83605; 85025; 87040; 87077; 87147; 87186; 87635; 93005; 96365; 99284; 99285; J1650; J2405